=== PATIENT | female | born 1955 | race Caucasian/White ===

== ENCOUNTER 2023-06-08 19:50 | Inpatient (IN) | payer OTHER, SELFPAY ==
[2023-06-08] VITALS (8 sets, daily range): BP systolic 102–138; BP diastolic 47–81; BMI 23.7; BMI 24.6
[2023-06-08 16:09] LABS: % Basophils 0.4 % (0-2); % Eosinophils 0.2 % (0-6); % Lymphocytes 5.1 % (20.5-51.1); % Neutrophils 85.3 % (42.2-75.2); Absolute Basophils 0.1 10^3/uL (0-0.2); Absolute Eosinophils 0.1 10^3/uL (0-0.7); Absolute Immature Granulocytes 0.9 10^3/uL (0-0.05); Absolute Lymphocytes 1.5 10^3/uL (1.2-3.4); Absolute Monocytes 1.7 10^3/uL (0.1-0.6); Absolute Neutrophils 24.3 10^3/uL (1.4-6.5); Hematocrit 24.6 % (37.0-47.0); Hemoglobin 8.1 g/dL (12.0-16.0); Mean Corp Hgb Conc. 32.9 g/dL (33.0-37.0); Mean Corpuscular Hgb 29.2 pg (27.0-31.0); Mean Corpuscular Volume 88.8 fL (81.0-99.0); Nucleated Red Blood Cells % 0 %; Platelet Count 662 10^3/uL (130-400); Red Blood Cell Count 2.77 10^6/uL (4.20-5.40); Red Cell Dist. Width 15.7 % (11.5-14.5); White Blood Cell Count 28.6 10^3/uL (4.8-10.8)
[2023-06-08 16:29] LABS: ALT (SGPT) 48 U/L (0-35); AST (SGOT) 58 U/L (14-36); Alkaline Phosphatase 367 U/L (38-126); Blood Urea Nitrogen 31 mg/dl (7-17); Calcium 9.2 mg/dl (8.4-10.2); Carbon Dioxide 18 mmol/L (22-30); Chloride 99 mmol/L (98-107); Estimated Creatinine Clearance 38 ml/min; Glucose 158 mg/dl (70-99); Potassium 3.3 mmol/L (3.5-5.1); Sodium 134 mmol/L (135-145); Total Bilirubin 0.7 mg/dl (0.2-1.3); Total Protein 6.4 g/dl (6.3-8.2); eGFR 45.35
[2023-06-08 16:35] LABS: COVID-19 Antigen Negative (Negative)
[2023-06-08] MEDS: DECADRON 10 MG IV (17:34)
[2023-06-08] MEDS: DUONEB 3 ML INH (17:34)
[2023-06-08] MEDS: ZITHROMAX INFUSION 250 IV (18:28)
[2023-06-08] MEDS: ROCEPHIN 2000 MG IV (18:29)
--- NOTE | 2023-06-08 19:07 | ED.GENMED ---
History of Present Illness
General
Chief Complaint: Cough
Source: patient
Exam Limitations: none
Time Seen by Provider: 06/08/23 16:53
Nursing documentation reviewed up to this point in time: agreed with
Travel History
Have you had any contact with someone who has COVID-19?: No
Do you have any symptoms of coronavirus? Fever > 100 degrees, chills, cough, shortness of breath, sore throat, loss of taste or smell, muscle aches, or headache?: No
History of Present Illness
History of Present Illness:
67-year-old female with medical history of hypertension hyperlipidemia anxiety depression presenting to the emergency department today with concerns of cough body aches over the past week also had some right low back pain as well. Claims to have
some mild shortness of breath as well.
Review of Systems
Review of Systems
Allergies reviewed?: Yes
All Other Systems: ROS reviewed and negative except as documented in HPI and ROS
Phy Exam
Physical Exam
Physical Exam:
GENERAL: Alert , in no apparent distress
EYE: pupils equal and reactive
NECK: Supple, no significant adenopathy.
ENT: o/p clr, mmm.
CARDIAC: Regular rate and rhythm .
LUNGS: Diffuse rhonchi maximal to the right lower lobe.
ABDOMEN: Soft, without focal tenderness, no r/g, no cvat
NEUROLOGICAL: Alert and oriented, no focal neuro deficits
SKIN: Warm and dry, skin intact.
MUSCULOSKELETAL: No edema, well perfused.
PSYCH: Normal and appropriate interaction.
Course
Orders/Labs/Results
Orders:
Orders
06/08/23 15:51
COVID-19 Antigen Urgent
Source: Nasal Swab
Complete Blood Count/With Diff Urgent
Comprehensive Metabolic Panel Urgent
Influenza A+B Rapid Molecular Urgent
LUCY Source: Nasal Swab
Specimen Description:
06/08/23 17:01
EKG [Electrocardiogram (*1)] Urgent
Reason for Study: Shortness of Breath
Chest [CR Chest - 2 Views ] Urgent
Comment:
Reason For Exam: cough body ache
06/08/23 17:02
EKG- Treatment ONCE
06/08/23 17:14
CT Abd/Pel (IV only)-[facility] only Urgent
Comment:
Reason For Exam: diffuse abd pain right flank pain
Dexamethasone Sod Phosphate [Decadron] 10 mg IV NOW STA
Ipratropium/Albuterol Sulfate [Duoneb] 3 ml INH R NOW ONE
06/08/23 18:00
Azithromycin 500 mg/250 ml [Zithromax Infusion] 500 mg in 250 ml IV NOW
CefTRIAXone [Rocephin] 2,000 mg IV NOW STA
06/08/23 18:25
Sterile Water [Sterile Water For Injection] 10 ml .ROUTE .[facility]
06/08/23 19:34
Admit/Transfer Patient As Directed
Co-Sign Provider:
Level of Care: Inpatient admission
Assign to:: Telemetry
Physician / Group: brenday
Diagnosis: Concerning for necrotizing PNA +/_ evolving lung abscess
Reason for Telemetry: Other
Other Reason for Telemetry: evolving sepsis
Date to Stop Telemetry: 06/10/23
Time to Stop Telemetry: 11:00
Reason for Hospitalization: Concerning for necrotizing PNA +/_ evolving lung abscess
Expected length of stay greater than two midnights?: Yes
ELOS- Estimated Length of Stay in days: 5
I certify the patient meets the requirements for IP care: Yes
06/08/23 19:36
Code Status As Directed
Resuscitation Status: Full Code
06/08/23 19:55
Lactate Level [Lactic Acid] Urgent
Blood Culture Q30M
LUCY Source: Blood/Venous
Specimen Description:
Comment: to collecect prior to ABx
Blood Culture Q30M
LUCY Source: Blood/Venous
Specimen Description:
Comment: to collecect prior to ABx
Legionella Urinary Antigen Routine
LUCY Source: Urine
Specimen Description:
06/10/23 11:00
DC Protocol for Telemetry ONCE
Abnormal Lab Results
06/08/23
15:51
WBC 28.6 H 10^3/uL
(4.8-10.8)
RBC 2.77 L 10^6/uL
(4.20-5.40)
Hgb 8.1 L g/dL
(12.0-16.0)
Hct 24.6 L %
(37.0-47.0)
MCHC 32.9 L g/dL
(33.0-37.0)
RDW 15.7 H %
(11.5-14.5)
Plt Count 662 H 10^3/uL
(130-400)
Abs Immat Gran (auto) 0.9 H 10^3/uL
(0-0.05)
Absolute Neuts (auto) 24.3 H 10^3/uL
(1.4-6.5)
Absolute Monos (auto) 1.7 H 10^3/uL
(0.1-0.6)
Immature Gran % 3.0 H %
(0-0.5)
Neutrophils % 85.3 H %
(42.2-75.2)
Lymphocytes % 5.1 L %
(20.5-51.1)
Sodium 134 L mmol/L
(135-145)
Potassium 3.3 L mmol/L
(3.5-5.1)
Carbon Dioxide 18 L mmol/L
(22-30)
BUN 31 H mg/dl
(7-17)
Creatinine 1.3 H mg/dL
(0.6-1.0)
Glucose 158 H mg/dl
(70-99)
AST 58 H U/L
(14-36)
ALT 48 H U/L
(0-35)
Alkaline Phosphatase 367 H U/L
(38-126)
Albumin 3.0 L g/dl
(3.5-5.0)
06/08/23 15:51
06/08/23 15:51
Vital Signs
Initial and Last Documented VS:
Initial Vital Signs
Pulse Resp Pulse Ox
75 18 97
06/08/23 15:45 06/08/23 15:45 06/08/23 15:45
Last Documented Vital Signs
Temp Pulse Resp BP Pulse Ox
97.9 F 75 17 138/58 93
06/08/23 15:50 06/08/23 20:00 06/08/23 20:00 06/08/23 19:50 06/08/23 19:30
MDM/Problems Addressed
MDM/Problems Addressed:
67-year-old female presenting to the emergency department today with concerns of respiratory symptoms generalized body aches weakness over the past week or so worsening over the past few days on arrival vital signs are normal patient does have
significant adventitious lung sounds patient does have a long history of smoking was started on DuoNebs and steroids. X-ray was performed that showed a large pneumonia to the right side and additionally labs showing white count of 28.6 and
hemoglobin of 8.1 no old levels for comparison. Otherwise abnormal liver function tests slightly elevated creatinine level plan to admit for further treatment and monitoring. Return precautions given.
*Critical Care Note
Total Time (30-74mins, 75-104mins- exclusive of procedures): Not Applicable
ED Attending Note
-
Portions of this chart may have been created with voice recognition software.� Occasional wrong word or��sound alike� substitutions may have occurred due to the inherent limitations of voice recognition software.
Discharge Plan
Departure
Patient Disposition: Admit
Date of Disposition: 06/08/23
Time of Disposition: 19:07
Admit to: Med/Surg
Admit to doctor: Brenday
Presentation/result/management discussed w/ accepting MD/DO: Hospitalist
Patient with high blood pressure during this ER visit?: No
Condition: Good
Covid-19: Not Applicable
Discharge Problem:
Pneumonia
Interventions
Interventions:
*Risk Screen - Suicide Last Done: 06/08/23 15:47
*General Assessment Last Done: 06/08/23 15:47
*Neglect/Abuse Screening Last Done: 06/08/23 15:47
ED- Fall Risk Assessment Last Done: 06/08/23 15:46
*ED COVID-19 Vaccine History Last Done: 06/08/23 15:46
ED- Pulmonary Assessment Last Done: 06/08/23 15:57
--- NOTE | 2023-06-08 19:30 | HPS.HSE ---
Family Physician
-
Family Physician: Lavern Villalpando
Chief Complaint
-
cough , myalgia for 1 week.
History of Present Illness
67F poor historian Former smoker , from home [facility] from home with productive cough, colored yellow sputum, myalgia for 1 week. Denied fever and chills
Worsening chr LBP especially on R Lower back. No focal weakness
Normallu use walker but last few days just lying in bed
Afebrile at ER but relatively hypotensive
Labs noted for Nl WCC, normocytic anemia, thrombocytosis, JERMAN with high AG MA , abnormal transaminase
POX CXR for R ML PNA
CT AP concerning for necrotizing PNA +/_ evolving lung abscess
Medical History
Past Medical History
Past Medical History: Reports Other
Additional Past Medical History:
Essential HTN
HLD
Depression
GERD
HX chr LBP
Ambulatory dysfunction
B/l impaired hearing
Past Surgical History: Reports Orthopedic (Lx surgery 2021 CTS Lt hand )
Social History
Tobacco: Former Smoker
Alcohol: None
Drug: None
Family History
Family History: Not pertinent
Allergies / Home Medications
Allergies reflects when Allergies were last updated in [facility].
Home Medications with original date entered in [facility]
Allergy/Medication List:
Allergies
Allergy/AdvReac Type Severity Reaction Status Date / Time
adhesive Allergy Rash Verified 06/08/23 15:42
Home Medications
Metocuramine 5 mg PO QID 06/08/23
amlodipine 5 mg tablet (Norvasc) 5 mg PO BID 06/08/23
atorvastatin 10 mg tablet (Lipitor) 10 mg PO QPM 06/08/23
buprenorphine 8 mg-naloxone 2 mg sublingual tablet 1 tab sublingual BID 06/08/23
bupropion HCl 150 mg 24 hr tablet, extended release (Wellbutrin XL) 450 mg PO DAILY 06/08/23
losartan 50 mg tablet 50 mg PO BID 06/08/23
methylnaltrexone 150 mg tablet (Relistor) 150 mg PO TID 06/08/23
sertraline 100 mg tablet 100 mg PO DAILY 06/08/23
Review of Systems
-
Constitutional: Reports No Symptoms
EENT: Reports No Symptoms
Respiratory: Reports See HPI and Cough
Cardiac: Reports No Symptoms
Abdomen/GI: Reports No Symptoms
: Reports No Symptoms
Musculoskeletal: Reports No Symptoms
Skin: Reports No Symptoms
Neurological: Reports No Symptoms
Endocrine: Reports No Symptoms
Hematologic/Lymphatic: Reports No Symptoms
Psych: Reports No Symptoms
Physical Exam
Vital Signs
Vital Signs
Temp Pulse Resp BP Pulse Ox
97.9 F 66 20 116/48 97
06/08/23 15:50 06/08/23 18:00 06/08/23 18:00 06/08/23 17:00 06/08/23 18:00
Physical Exam
General: Well Developed, Well Nourished, No Apparent Distress, Conversant and Other (not toxic )
HEENT: NormoCephalic, Anicteric and Other
Respiratory: Other (decresed AE at Rt side ); No Wheezes or Rhonchi
Cardiac: S1/S2, Regular Rhythm and Bradycardia; No Murmur
Breast: Deferred by me
GI: Soft, Non Tender, Non Distended and Normal Bowel Sounds
Rectal: Deferred by Provider
Genito-urinary: Deferred by me
Musculoskeletal: No Edema
Skin: Warm and Dry
Neuro: AO x 3
Psych: Calm
Laboratory Results
-
06/08/23 15:51
06/08/23 15:51
Laboratory Results
Total Bilirubin 0.7 mg/dl (0.2-1.3) 06/08/23 15:51
AST 58 U/L (14-36) H 06/08/23 15:51
ALT 48 U/L (0-35) H 06/08/23 15:51
Alkaline Phosphatase 367 U/L (38-126) H 06/08/23 15:51
Data Reviewed
-
Diagnostic Radiology: Report Reviewed by me
CT Scan: Report Reviewed by me
Lab Data: Labs Reviewed by me
Impression/Plan
-
Reviewed VS: Afebrile BP 105/50 - 115/50 HR 60s RR 20 POx 97
Data- No prior data in [facility]
WCC 28s
Hgb 8.1 nl MCV
Plt 662
Na 134
K 3.3
CO2 18
Cr 1.3 BUN 31
Hi AG MA 17 due to JERMAN
AST 58 ALT 48 AKP 367 nl TB Alb 3
BCx x 2 sent prior to ABx
Pending Ur Legionella Ag
NEG Covid
NEG Flu A & B
CXR : Pneumonia in the right middle lobe.
06/08/23 CT Abd/Pel (IV only)- only
Partially imaged dense consolidation in the right middle lobe remains concerning for pneumonia.
Imaging follow-up to resolution is recommended as an underlying pulmonary mass would be difficult to exclude. Irregular areas of fluid attenuation and scattered foci of gas within the consolidation considered at least suspicious for necrotizing
pneumonia, but no discrete thick-walled abscess on this exam.
No prior admission to [facility]
ASSESSMENT & PLAN
Rt ML PNA with Irregular areas of fluid attenuation + scattered foci of gas within the consolidation
Concerning for necrotizing PNA +/_ evolving lung abscess - noted associated reactive thrombocytosis
Cannot exclude underlying Pul mass
+ wheezing with former smoking HX: No prior HX COPD
Relatively hypotensive probably incipient sepsis
- BCx x2 prior to ABx
- IV CFTZ and Azithromycin
- Urine Legionella Ag
- LR IVF
- check LA
- Consult: Pul and ID for AM
JERMAN ? - suspect 2/2 prerenal and sepsis
Hi AG MA
Relatively hypotensive
- Held Losartan
- IVF and tred Cr in AM
Normocytic anemia
- check ferritin
Transaminitis DDX; suspect AILI due to hypotension in setting of incipient sepsis
- Held Atorvastatin
- Trend LFTs
Essential HTN
- Held Amlodipine and Losartan
- IVF and observe BP
HLD
- held atorvastatin due to abn LFTs
Depression
- Stable
- cont OP Bupropion and sertraline
Chr Suboxone inn place of prior Percocet depended LBP
- cont. Suboxone
- PT
DVT Px: SQH
Code: Full
IP TLM
[2023-06-08 20:23] LABS: Lactic Acid 0.8 mmol/L (0.7-2.0)
[2023-06-08] MEDS: ROBITUSSIN 200 MG PO (22:32)
[2023-06-08] MEDS: ULTRAM 25 MG PO (22:33)
--- NOTE | 2023-06-08 22:42 | EDRN ---
Prior to pt leaving to go to floor, pt asked for pain medication and a cough suppressant. Hospitalist made aware. Orders given for Tramadol and Robitussin. Meds given to pt. See MAR. Pt transferred to Room 420 by PCT on stretcher. Will
continue to monitor.
[2023-06-09] VITALS (8 sets, daily range): BP systolic 120–139; BP diastolic 52–73
[2023-06-09] MEDS: WELLBUTRIN XL (24 hour extended release) 450 MG PO ×2 (00:41→08:50)
[2023-06-09] MEDS: SUBUTEX 8 MG SL ×3 (00:46→20:53)
[2023-06-09] MEDS: ZOLOFT 100 MG PO ×2 (00:49→08:50)
[2023-06-09] MEDS: HEPARIN 5000 UNITS SC ×2 (00:50→08:48)
[2023-06-09] MEDS: LR 1000 IV ×2 (00:50→12:06)
[2023-06-09] MEDS: MUCINEX 600 MG PO ×3 (00:50→20:53)
--- NOTE | 2023-06-09 07:55 | W.PN.HOSP.TC ---
Today's Communication/Plan
-
see bold
Assessment / Plan
Assessment / Plan
HPI: 67F poor historian Former smoker , from home [facility] from home with productive cough, colored yellow sputum, myalgia for 1 week. Denied fever and chills
Worsening chr LBP especially on R Lower back. No focal weakness
Normally use walker but last few days just lying in bed
Assessment/plan:
#Community-acquired pneumonia
Patient satting 97% on room air
Appreciate ID input, continue Rocephin and azithromycin
COVID-negative, influenza negative, urine Legionella antigen negative, strep antigen pending
Check chest CT in the a.m., trend fever and white count
Cancel pulmonology consult
#Acute kidney injury
Secondary to sepsis versus dehydration
Resolved
#Non-anion gap metabolic acidosis
Lactic acid 0.8
Start sodium bicarb
#Severe constipation
Has not had a bowel movement for 2 weeks
Start aggressive laxatives, hold for diarrhea
#Hypokalemia
Repleted and resolved, check a.m. potassium and magnesium
#Hyponatremia
Check urine studies, TSH, free T4
Fluid restrict, trend sodium
#Normocytic anemia
Check iron studies
#Elevated LFTs
Monitor
#Depression
Continue bupropion and sertraline
#Chronic back pain dependent on opioids
Continue Suboxone, add Tylenol, add lidocaine patch
DVT prophylaxis�subcu Lovenox
Full code
Physical Exam
General: No acute distress
HEENT: Normocephalic, Atraumatic, EOMI, MMM
Respiratory: Left basilar crackles
Cardiac: Normal S1/S2, Regular Rate and Rhythm
GI: Soft, Nontender, Nondistended, Normal Bowel Sounds
Extremities: No Clubbing, Cyanosis, or Edema
Neuro: Nonfocal/Grossly Intact
Psych: Calm, Cooperative
Derm: No Visible lesions
Anticipated Discharge: > 48 hours
Subjective/Interval History
-
Date of Service: June 09, 2023
Patient complains of pain. She also is constipated. She reports a cough, nonproductive. She continues to be short of breath. No fever, no vomiting.
Objective Data
-
Labs:
Laboratory Results
06/09/23
07:52
WBC Pending
Hgb Pending
Hct Pending
Plt Count Pending
Sodium Pending
Potassium Pending
Chloride Pending
Carbon Dioxide Pending
BUN Pending
Creatinine Pending
Glucose Pending
Calcium Pending
Total Bilirubin Pending
AST Pending
ALT Pending
Alkaline Phosphatase Pending
Vital Signs:
Vital Signs
Temp Pulse Resp BP Pulse Ox
98.2 F 70 16 139/64 95
06/09/23 04:11 06/09/23 04:11 06/09/23 04:11 06/09/23 04:11 06/09/23 04:11
I&O
06/08/23 06/09/23 06/10/23
06:59 06:59 06:59
Intake Total 480 / 480
Output Total 0 / 0
Balance 480 / 480
[2023-06-09 08:49] LABS: % Basophils 0.4 % (0-2); % Immature Granulocytes 2.2 % (0-0.5); % Lymphocytes 4.7 % (20.5-51.1); % Monocytes 1.5 % (1.7-9.3); % Neutrophils 91.2 % (42.2-75.2); Absolute Basophils 0.1 10^3/uL (0-0.2); Absolute Immature Granulocytes 0.5 10^3/uL (0-0.05); Absolute Monocytes 0.3 10^3/uL (0.1-0.6); Absolute Neutrophils 18.8 10^3/uL (1.4-6.5); Hematocrit 23.6 % (37.0-47.0); Mean Corp Hgb Conc. 33.9 g/dL (33.0-37.0); Mean Corpuscular Hgb 29.4 pg (27.0-31.0); Mean Corpuscular Volume 86.8 fL (81.0-99.0); Mean Platelet Volume 10.2 fL (7.4-10.4); Nucleated Red Blood Cells % 0 %; Platelet Count 648 10^3/uL (130-400); Red Blood Cell Count 2.72 10^6/uL (4.20-5.40); Red Cell Dist. Width 15.9 % (11.5-14.5); White Blood Cell Count 20.6 10^3/uL (4.8-10.8)
[2023-06-09] MEDS: ZITHROMAX 500 MG PO (08:50)
--- NOTE | 2023-06-09 09:05 | PTCARENOTE ---
Pt admitted to the unit from ED. Pt ambulated with nursing staff to bed. AAXO3. Pt uses rolling walker at baseline. Pt reports 'lower right pain when I cough.' Pt oriented to room with call nugent in reach.
This RN assisted in the ambulation of pt to bathroom with rolling walker. Pt reported 'lightheadedness with ambulation to bed.' Pt reports 'lightheadedness resolved' once in bed. Pt denies SOB, chest pain, and difficulty breathing. Bedside commode
placed in room. Plan of care ongoing.
[2023-06-09 09:14] LABS: ALT (SGPT) 46 U/L (0-35); AST (SGOT) 57 U/L (14-36); Albumin 2.6 g/dl (3.5-5.0); Alkaline Phosphatase 306 U/L (38-126); Blood Urea Nitrogen 31 mg/dl (7-17); Calcium 8.8 mg/dl (8.4-10.2); Carbon Dioxide 16 mmol/L (22-30); Chloride 104 mmol/L (98-107); Estimated Creatinine Clearance 44 ml/min; Glucose 277 mg/dl (70-99); Potassium 4.2 mmol/L (3.5-5.1); Sodium 130 mmol/L (135-145); Total Bilirubin 0.3 mg/dl (0.2-1.3); Total Protein 5.7 g/dl (6.3-8.2); eGFR > 60.00
[2023-06-09 10:20] LABS: Folate 6.8 ng/ml (2.76-20); Vitamin B12 > 1000 pg/ml (239-931)
[2023-06-09] MEDS: CITROMA 300 ML PO (11:22)
[2023-06-09] MEDS: SENOKOT-S 2 TABLET PO ×2 (11:23→20:53)
--- NOTE | 2023-06-09 11:33 | CON.ID ---
Consultation
-
Date/Time Consultation Requested: 06/08/2023 2212
Date/Time Consultation Performed: 06/09/2023 1129
Requesting Provider: Dr. Boothe
Performing Provider: Dr. Ferris
Reason for Consultation: Pneumonia; leukocytosis
Chief Complaint / Past History
History of Present Illness
Analia Eric is a 67-year-old female with a significant past medical history HTN dyslipidemia being evaluated at the request of Dr. Boothe in regards to leukocytosis and pneumonia. History is obtained from chart review, along with patient interview.
The patient presented to the ER on 06/07 secondary to cough with associated myalgias and arthralgias over the past week. She also reported some right low back discomfort and mild shortness of breath. Workup in the ER revealed a significant
leukocytosis and mild renal insufficiency. Imaging revealed a right middle lobe pneumonia. The patient has been started on empiric antibiotics (ceftriaxone/Azithromycin) and Infectious Diseases is asked to comment on further antimicrobial
management.
Additional history indicates that she had been producing yellow-colored sputum.
Past History
Additional Past Medical History:
HTN
Dyslipidemia
Depression
GERD
Chronic low back pain
Ambulatory dysfunction
Hearing impairment
Additional Past Surgical History:
Lumbar surgery
Allergy History:
adhesive Allergy (Verified 06/08/23 15:42)
Rash
Medications Reviewed: Yes
Current Antibiotics:
Ceftriaxone
Azithromycin
Social History
Tobacco: Former Smoker
Alcohol: None
Drug: None
Living: With Family
Employment: Retired
Family History
Family History: Not Pertinent
Review of Systems
Vital Signs
Temp Pulse Resp BP Pulse Ox
97.9 F 66 16 122/57 99
06/09/23 07:37 06/09/23 09:27 06/09/23 09:27 06/09/23 07:37 06/09/23 09:27
Physical Exam
Physical Exam
Constitutional: No Acute Distress, Comfortable, Chronically Ill and Non-toxic
Eyes: Pupils Equal, Pupils Round, No Conjunctival Hemorrhage and Sclera Anicteric
Oral: No Thrush and No Ulcers
Cardiovascular: S1/S2; Negative S3/S4
Pulmonary: Rhonchi (Few; scattered), Coarse and Non Labored; Negative Wheezes
Gastrointestinal: Soft, Non Tender, Non Distended and Normal Bowel Sounds
Extremities: Negative Erythema
Skin: Warm and Dry; Negative Rash or Jaundice
Neurological: Awake and Alert
.
Lab / Diagnostic Study Results
06/09/23 07:52
06/09/23 07:52
Abs Immat Gran (auto) 0.5 10^3/uL (0-0.05) H 06/09/23 07:52
Absolute Neuts (auto) 18.8 10^3/uL (1.4-6.5) H 06/09/23 07:52
Absolute Lymphs (auto) 1.0 10^3/uL (1.2-3.4) L 06/09/23 07:52
Absolute Monos (auto) 0.3 10^3/uL (0.1-0.6) 06/09/23 07:52
Absolute Basos (auto) 0.1 10^3/uL (0-0.2) 06/09/23 07:52
Immature Gran % 2.2 % (0-0.5) H 06/09/23 07:52
Neutrophils % 91.2 % (42.2-75.2) H 06/09/23 07:52
Lymphocytes % 4.7 % (20.5-51.1) L 06/09/23 07:52
Monocytes % 1.5 % (1.7-9.3) L 06/09/23 07:52
Eosinophils % 0.0 % (0-6) 06/09/23 07:52
Basophils % 0.4 % (0-2) 06/09/23 07:52
Lactic Acid 0.8 mmol/L (0.7-2.0) 06/08/23 19:55
Microbiology Results
Micro:
06/08/23 19:55 Legionella Urinary Antigen - Final
Urine Negative for Legionella pneumophila Serogroup 1 antigen.
A negative result does not rule out the possiblity of
Legionella infection due to other serogroups or species of
Legionella. Clinical correlation is recommended.
06/08/23 19:55 Blood Culture - Pending
Blood/Venous
06/08/23 19:55 Blood Culture - Pending
Blood/Venous
06/08/23 15:51 Influenza Types A & B (FRANK) - Final
Nasal Swab Negative for Influenza A & B, NAAT
Negative results must be combined with clinical observations
and patient history.
Nucleic Acid Amplification test (NAAT)performed on the
[employer] platform.
Imaging:
06/08/2023 CXR (2 view): Right middle lobe consolidative airspace opacity compatible with pneumonia. No pleural effusion or pneumothorax.
06/08/2023 CT abdomen/pelvis: Liver, gallbladder, bile ducts and spleen are unremarkable. Bilateral adrenal glands are unremarkable. Pancreas is severely atrophic. Partially imaged dense consolidation in the right middle lobe remains concerning
for pneumonia. Please see full dictation for additional detail.
Assessment / Plan
Right middle lobe pneumonia (CAP)
Leukocytosis
JERMAN; improved
Mild transaminitis
HTN
Dyslipidemia
Depression
GERD
Chronic low back pain
Ambulatory dysfunction
Hearing impairment
Recommendations:
Continue with current antibiotic therapy (ceftriaxone/Azithromycin.
Check sputum culture.
Monitor white count and temperature curve.
Check streptococcal urinary antigen.
[2023-06-09] MEDS: MIRALAX 17 GRAMS PO ×2 (12:06→20:53)
--- NOTE | 2023-06-09 12:32 | CM ---
manager harbor reviewed patient's chart and patient reports that she recently moved in with her 'friend', per patient it was extremely rushed, patient reports that she is independent with adl's and ambulation, patient has a walker that is packed with
the rest of her belongings and she is not sure where it is, Patient lives with friend in a 2 story home, patient has a prescription plan and uses [facility].
PCP: Lavern Villalpando
Plan; Home with friend when stable.
--- NOTE | 2023-06-09 13:00 | W.PN.UPDATE ---
Update Note
Progress Note Update
Of note, pulmonary consultation was canceled by Dr. Bowden on 06/09/2023. Please reconsult if there are any additional questions/concerns, or if patient's respiratory status deteriorates.
[2023-06-09] MEDS: TYLENOL 1000 MG PO ×2 (13:47→20:53)
[2023-06-09] MEDS: LIDOCAINE 4% PATCH 2 PATCH TOPICAL (13:47)
[2023-06-09] MEDS: FLUSH (NSS) 1 FLUSH IV ×2 (17:51→18:19)
[2023-06-09] MEDS: DUPHALAC/CHRONULAC 20 GRAMS PO (17:51)
[2023-06-09] MEDS: LOVENOX 40 MG SC (17:54)
[2023-06-09] MEDS: ROCEPHIN 1000 MG IV (18:21)
[2023-06-09] MEDS: STERILE WATER FOR INJECTION 10 ML IV (18:22)
[2023-06-10 03:05] VITALS: BP 127/46
[2023-06-10 07:00] VITALS: BP 129/63
[2023-06-10 07:49] LABS: % Basophils 0.2 % (0-2); % Eosinophils 0.2 % (0-6); % Immature Granulocytes 1.7 % (0-0.5); % Lymphocytes 16.8 % (20.5-51.1); % Neutrophils 76.1 % (42.2-75.2); Absolute Immature Granulocytes 0.3 10^3/uL (0-0.05); Absolute Lymphocytes 3.1 10^3/uL (1.2-3.4); Absolute Monocytes 0.9 10^3/uL (0.1-0.6); Absolute Neutrophils 13.8 10^3/uL (1.4-6.5); Hematocrit 24.9 % (37.0-47.0); Hemoglobin 7.9 g/dL (12.0-16.0); Mean Corp Hgb Conc. 31.7 g/dL (33.0-37.0); Mean Corpuscular Hgb 28.6 pg (27.0-31.0); Mean Corpuscular Volume 90.2 fL (81.0-99.0); Nucleated Red Blood Cells % 0 %; Platelet Count 684 10^3/uL (130-400); Red Blood Cell Count 2.76 10^6/uL (4.20-5.40); Red Cell Dist. Width 16.1 % (11.5-14.5); White Blood Cell Count 18.2 10^3/uL (4.8-10.8)
[2023-06-10] MEDS: LIDOCAINE 4% PATCH 2 PATCH TOPICAL (08:00)
[2023-06-10 08:23] LABS: ALT (SGPT) 139 U/L (0-35); AST (SGOT) 202 U/L (14-36); Albumin 2.7 g/dl (3.5-5.0); Alkaline Phosphatase 266 U/L (38-126); Blood Urea Nitrogen 42 mg/dl (7-17); Calcium 9.3 mg/dl (8.4-10.2); Carbon Dioxide 19 mmol/L (22-30); Chloride 103 mmol/L (98-107); Estimated Creatinine Clearance 40 ml/min; Glucose 136 mg/dl (70-99); Iron 116 ug/dl (37-170); Potassium 4.1 mmol/L (3.5-5.1); Sodium 137 mmol/L (135-145); Total Bilirubin 0.4 mg/dl (0.2-1.3); Total Protein 5.9 g/dl (6.3-8.2); eGFR 55.42
[2023-06-10 08:36] LABS: Percent Saturation 58 % (20-50); Total Iron Binding Capacity 197 ug/dl (265-497)
[2023-06-10] MEDS: ZOFRAN 4 MG IV (09:20)
[2023-06-10] MEDS: LR IV (09:20)
[2023-06-10] MEDS: ZITHROMAX 500 MG PO (10:27)
[2023-06-10] MEDS: LR 1000 IV (10:29)
[2023-06-10] MEDS: WELLBUTRIN XL (24 hour extended release) 450 MG PO (10:30)
[2023-06-10] MEDS: SUBUTEX 8 MG SL ×2 (10:30→20:35)
[2023-06-10] MEDS: ZOLOFT 100 MG PO (10:30)
[2023-06-10] MEDS: SENOKOT-S 2 TABLET PO ×2 (10:30→20:34)
[2023-06-10] MEDS: MUCINEX 600 MG PO ×2 (10:30→20:35)
[2023-06-10] MEDS: TYLENOL 1000 MG PO ×3 (10:30→20:54)
[2023-06-10] MEDS: MIRALAX 17 GRAMS PO ×2 (10:31→20:35)
[2023-06-10 10:57] VITALS: BP 143/69
--- NOTE | 2023-06-10 11:52 | PTCARENOTE ---
Patient with one episode of emesis, says it just cam joe her all of the sudden and felt nauseous afterwards. Patient reports that this isn't abnormal for her, and that she typically vomits a few times a week at home for which she takes medication.
Provider aware, stat zofran given IV per MAY. Patient able to tolerate PO medications after administration.
--- NOTE | 2023-06-10 12:10 | W.PN.HOSP.TC ---
Today's Communication/Plan
-
Continue IV abx
Enema
Assessment / Plan
Assessment / Plan
HPI: 67F poor historian Former smoker , from home [facility] from home with productive cough, colored yellow sputum, myalgia for 1 week. Denied fever and chills
Worsening chr LBP especially on R Lower back. No focal weakness
Normally use walker but last few days just lying in bed
Assessment/plan:
#Community-acquired pneumonia
Patient satting 97% on room air
Appreciate ID input, continue Rocephin and azithromycin D3
COVID-negative, influenza negative, urine Legionella/strep antigen negative
Check chest CT, leukocytosis improving, trend fever and white count
#Acute kidney injury
Secondary to sepsis versus dehydration
Resolved
#Non-anion gap metabolic acidosis
Lactic acid 0.8
Continue sodium bicarb
#Severe constipation
Has not had a bowel movement for 2 weeks
Start aggressive laxatives, hold for diarrhea
Enema today, add lactulose
#Hypokalemia
Repleted and resolved, check a.m. potassium and magnesium
#Hyponatremia
Sodium improved today at 137, was 130
Fluid restrict, trend sodium
# Anemia of chronic disease
Iron studies reviewed, patient has anemia of chronic disease
Trend hemoglobin
#Elevated LFTs
Monitor
#Depression
Continue bupropion and sertraline
#Chronic back pain dependent on opioids
Continue Suboxone, added Tylenol, added lidocaine patch
DVT prophylaxis�subcu Lovenox
Full code
Total time spent to see the patient on the floor, examine the patient, review data and lab results, discuss treatment plan with patient, nursing staff around 51 minutes.
Physical Exam
General: Appears chronically ill, no acute distress
HEENT: Normocephalic, Atraumatic, EOMI, MMM
Respiratory: Left basilar crackles
Cardiac: Normal S1/S2, Regular Rate and Rhythm
GI: Soft, Nontender, distended abdomen, Normal Bowel Sounds
Extremities: No Clubbing, Cyanosis, or Edema
Neuro: Nonfocal/Grossly Intact
Psych: Calm, Cooperative
Anticipated Discharge: > 48 hours
Subjective/Interval History
-
Date of Service: June 10, 2023
Patient continues to have a dry cough. She had a tiny hard bowel movement. No fever, no vomiting. No shortness of breath. Continues to have chronic back pain.
Objective Data
-
Labs:
Laboratory Results
06/10/23
07:15
WBC 18.2 H
Hgb 7.9 L
Hct 24.9 L
Plt Count 684 H
Sodium 137
Potassium 4.1
Chloride 103
Carbon Dioxide 19 L
BUN 42 H
Creatinine 1.1 H
Glucose 136 H
Calcium 9.3
Total Bilirubin 0.4
AST 202 H
ALT 139 H
Alkaline Phosphatase 266 H
Vital Signs:
Vital Signs
Temp Pulse Resp BP Pulse Ox
98.2 F 97 16 143/69 94
06/10/23 10:57 06/10/23 10:57 06/10/23 10:57 06/10/23 10:57 06/10/23 10:57
I&O
06/09/23 06/10/23 06/11/23
06:59 06:59 06:59
Intake Total 480 / 480 500 / 500
Output Total 0 / 0
Balance 480 / 480 500 / 500
--- NOTE | 2023-06-10 14:02 | W.PN.ID1 ---
Date of Service
Date of Service: June 10, 2023
Today's Communication
Continue antibiotics.
Assessment / Plan
Right middle lobe pneumonia (CAP)
Leukocytosis
JERMAN; improved
Mild transaminitis
HTN
Dyslipidemia
Depression
GERD
Chronic low back pain
Ambulatory dysfunction
Hearing impairment
Recommendations:
Continue with current antibiotic therapy (ceftriaxone/Azithromycin)
Await sputum culture (no sample submitted as of yet)
Monitor white count and temperature curve.
����������������������������������������������������������
Chief Complaint
-: Pneumonia
Subjective / Review of Systems
Patient remains afebrile.
Vital Signs / Physical Exam
Vital Signs
Vital Signs
Temp Pulse Resp BP Pulse Ox
98.2 F 97 16 143/69 94
06/10/23 10:57 06/10/23 10:57 06/10/23 10:57 06/10/23 10:57 06/10/23 10:57
Physical Exam
Constitutional: Chronically Ill and Non-toxic
Pulmonary: Rhonchi (Scattered), Coarse and Non Labored
Gastrointestinal: Soft and Non Distended
Neurological: Awake and Alert
Psychological: Calm
Objective Data
Lab Data
Lab Results
06/10/23 07:15
06/10/23 07:15
Estimated Creat Clear 40 ml/min 06/10/23 07:15
Lactic Acid 0.8 mmol/L (0.7-2.0) 06/08/23 19:55
Total Bilirubin 0.4 mg/dl (0.2-1.3) 06/10/23 07:15
AST 202 U/L (14-36) H 06/10/23 07:15
ALT 139 U/L (0-35) H 06/10/23 07:15
Alkaline Phosphatase 266 U/L (38-126) H 06/10/23 07:15
Most recent labs reviewed.
Micro Results:
06/09/23 11:50 Streptococcus pneumoniae Antigen (M - Final
Urine Negative for Streptococcus pneumoniae antigen.
A negative result does not exclude infection with
Streptococcus pneumoniae. Clinical correlation is
recommended.
06/08/23 19:55 Blood Culture - Preliminary
Blood/Venous No Growth in 24 hours- Final report to follow
06/08/23 19:55 Blood Culture - Preliminary
Blood/Venous No Growth in 24 hours- Final report to follow
06/08/23 19:55 Legionella Urinary Antigen - Final
Urine Negative for Legionella pneumophila Serogroup 1 antigen.
A negative result does not rule out the possiblity of
Legionella infection due to other serogroups or species of
Legionella. Clinical correlation is recommended.
06/08/23 15:51 Influenza Types A & B (FRANK) - Final
Nasal Swab Negative for Influenza A & B, NAAT
Negative results must be combined with clinical observations
and patient history.
Nucleic Acid Amplification test (NAAT)performed on the
[employer] platform.
Imaging:
06/08/2023 CXR (2 view): Right middle lobe consolidative airspace opacity compatible with pneumonia. No pleural effusion or pneumothorax.
06/08/2023 CT abdomen/pelvis: Liver, gallbladder, bile ducts and spleen are unremarkable. Bilateral adrenal glands are unremarkable. Pancreas is severely atrophic. Partially imaged dense consolidation in the right middle lobe remains concerning
for pneumonia. Please see full dictation for additional detail.
[2023-06-10 14:17] LABS: Glycohemoglobin (HgbA1c) 7.9 % (4.0-5.6)
[2023-06-10] MEDS: SODIUM BICARBONATE 1075 MEQ IV (14:36)
[2023-06-10] MEDS: PHENERGAN 25 MG PO (14:44)
[2023-06-10 15:19] VITALS: BP 126/50
--- NOTE | 2023-06-10 16:02 | CM ---
Patient seen bedside.
PT recommending skilled rehab.
Options reviewed with patient.
Referrals placed.
Plan: skilled rehab when stable.
[2023-06-10] MEDS: ROCEPHIN 1000 MG IV (17:15)
[2023-06-10] MEDS: DUPHALAC/CHRONULAC 20 GRAMS PO (17:16)
[2023-06-10] MEDS: FLUSH (NSS) 1 FLUSH IV (17:16)
[2023-06-10] MEDS: LOVENOX 40 MG SC (17:16)
[2023-06-10] MEDS: STERILE WATER FOR INJECTION 10 ML IV (17:16)
[2023-06-10 19:32] VITALS: BP 160/64
[2023-06-10 23:26] VITALS: BP 148/63
[2023-06-11 02:53] VITALS: BP 149/55
[2023-06-11 05:56] LABS: Hepatitis C Antibody Negative (Negative)
[2023-06-11 06:15] VITALS: BMI 25.5
--- NOTE | 2023-06-11 06:53 | W.PN.HOSP.TC ---
Today's Communication/Plan
-
cont abx
pain control
bowel regimen
monitor H&H
Assessment / Plan
Assessment / Plan
HPI: 67F poor historian Former smoker , from home [facility] from home with productive cough, colored yellow sputum, myalgia for 1 week. Denied fever and chills
Worsening chr LBP especially on R Lower back. No focal weakness
Normally use walker but last few days just lying in bed
Assessment/plan:
#Community-acquired pneumonia
stable respiratory status on room air
Appreciate ID input, continue Rocephin and azithromycin D4
COVID-negative, influenza negative, urine Legionella/strep antigen negative
CT chest appreciated PNA, limited evaluation w/o contrast, follow up imaging in a few weeks recommended
leukocytosis improving, afebrile
#Acute kidney injury
Secondary to sepsis versus dehydration
Resolved
#Non-anion gap metabolic acidosis
Lactic acid 0.8
acidosis resolved, bicarb supplementation appreciated
#Severe constipation
reportedly has not had a bowel movement for 2 weeks
cont aggressive bowel regimen
constipation appears resolved at this time
#Hypokalemia
repleted
resolved
#Hyponatremia
cont Fluid restriction
Na stable 130s
# Anemia of chronic disease
Iron studies reviewed, patient has anemia of chronic disease
Trend hemoglobin
#Elevated LFTs
Monitor
#Depression
Continue bupropion and sertraline
#Chronic back pain dependent on opioids
Continue Suboxone, cont Tylenol lidocaine patch
prn Ibuprofen
DVT prophylaxis�subcu Lovenox
GI ppx Protonix
Full code
PT appreciated SNF rehab
Total time spent to see the patient on the floor, examine the patient, review data and lab results, discuss treatment plan with patient, nursing staff around 53 minutes.
Physical Exam
General: Appears chronically ill, no acute distress
HEENT: Normocephalic, Atraumatic, EOMI, MMM
Respiratory: Left basilar crackles
Cardiac: Normal S1/S2, Regular Rate and Rhythm
GI: Soft, Nontender, distended abdomen, Normal Bowel Sounds
Extremities: No Clubbing, Cyanosis, or Edema
Neuro: Nonfocal/Grossly Intact
Psych: Calm, Cooperative
Anticipated Discharge: 24 - 48 hours
Subjective/Interval History
-
Date of Service: June 11, 2023
Seen and examined at bedside in no acute distress sitting up comfortably in chair. Denies constipation. Reports back pain.
Objective Data
-
Labs:
Laboratory Results
06/11/23
06:00
WBC Pending
Hgb Pending
Hct Pending
Plt Count Pending
Sodium Pending
Potassium Pending
Chloride Pending
Carbon Dioxide Pending
BUN Pending
Creatinine Pending
Glucose Pending
Calcium Pending
Vital Signs:
Vital Signs
Temp Pulse Resp BP Pulse Ox
98.2 F 65 18 149/55 94
06/11/23 02:53 06/11/23 02:53 06/11/23 02:53 06/11/23 02:53 06/11/23 02:53
I&O
06/09/23 06/10/23 06/11/23
06:59 06:59 06:59
Intake Total 480 / 480 500 / 500 1640 / 1640
Output Total 0 / 0
Balance 480 / 480 500 / 500 1640 / 1640
[2023-06-11 08:35] VITALS: BP 168/68
[2023-06-11 08:44] LABS: Hematocrit 23.8 % (37.0-47.0); Hemoglobin 7.7 g/dL (12.0-16.0); Mean Corp Hgb Conc. 32.4 g/dL (33.0-37.0); Mean Corpuscular Hgb 29.2 pg (27.0-31.0); Mean Corpuscular Volume 90.2 fL (81.0-99.0); Mean Platelet Volume 10.1 fL (7.4-10.4); Platelet Count 656 10^3/uL (130-400); Red Blood Cell Count 2.64 10^6/uL (4.20-5.40); Red Cell Dist. Width 15.9 % (11.5-14.5); White Blood Cell Count 13.3 10^3/uL (4.8-10.8)
[2023-06-11] MEDS: MUCINEX 600 MG PO ×2 (09:01→19:24)
[2023-06-11] MEDS: ZOLOFT 100 MG PO (09:01)
[2023-06-11] MEDS: ZITHROMAX 500 MG PO (09:01)
[2023-06-11] MEDS: WELLBUTRIN XL (24 hour extended release) 450 MG PO (09:01)
[2023-06-11] MEDS: TYLENOL 1000 MG PO ×3 (09:01→21:12)
[2023-06-11] MEDS: SUBUTEX 8 MG SL ×2 (09:01→19:24)
[2023-06-11] MEDS: MIRALAX PO ×2 (09:02→19:24)
[2023-06-11] MEDS: SENOKOT-S PO (09:02)
[2023-06-11] MEDS: LIDOCAINE 4% PATCH 2 PATCH TOPICAL (09:02)
[2023-06-11 09:14] LABS: Blood Urea Nitrogen 33 mg/dl (7-17); Calcium 8.5 mg/dl (8.4-10.2); Carbon Dioxide 22 mmol/L (22-30); Chloride 105 mmol/L (98-107); Estimated Creatinine Clearance 44 ml/min; Glucose 123 mg/dl (70-99); Potassium 4.2 mmol/L (3.5-5.1); Sodium 133 mmol/L (135-145); eGFR > 60.00
[2023-06-11] MEDS: PHENERGAN 25 MG PO (09:39)
[2023-06-11 11:46] VITALS: BP 134/64
[2023-06-11 12:35] VITALS: BP 136/63; BP 147/52; PULSE 65
[2023-06-11 13:56] LABS: Cortisol, Random 10.3 ug/dl; TSH Reflex To Free T4 2.11 uIU/ml (0.47-4.68)
[2023-06-11 14:03] LABS: Transferrin 148 mg/dL (200-360)
[2023-06-11] MEDS: PROTONIX 40 MG PO (14:12)
[2023-06-11] MEDS: MOTRIN 400 MG PO (14:12)
--- NOTE | 2023-06-11 15:04 | W.PN.ID1 ---
Date of Service
Date of Service: June 11, 2023
Today's Communication
Continue antibiotics.
Assessment / Plan
Right middle lobe pneumonia (CAP)
Leukocytosis
JERMAN; improved
Mild transaminitis
HTN
Dyslipidemia
Depression
GERD
Chronic low back pain
Ambulatory dysfunction
Hearing impairment
Recommendations:
Continue with ceftriaxone (d#4) / Azithromycin (d#4).
May be able to transition to oral regimen in the next 24 hours.
Monitor white count and temperature curve.
����������������������������������������������������������
Chief Complaint
-: Pneumonia
Subjective / Review of Systems
Patient seen and examined. Reports some ongoing cough.
Review of Systems: No Fever and No Chills
Vital Signs / Physical Exam
Vital Signs
Vital Signs
Temp Pulse Resp BP Pulse Ox
98.6 F 67 17 134/64 91
06/11/23 11:46 06/11/23 11:46 06/11/23 11:46 06/11/23 11:46 06/11/23 11:46
Physical Exam
Constitutional: Comfortable, Chronically Ill and Non-toxic
Eyes: Sclera Anicteric
Cardiovascular: S1/S2; Negative S3/S4
Pulmonary: Rhonchi (Few; scattered), Coarse and Non Labored
Gastrointestinal: Soft, Normal Bowel Sounds, No Rebound and No Guarding
Neurological: Awake and Alert
Psychological: Calm
Objective Data
Lab Data
Lab Results
06/11/23 07:15
06/11/23 07:15
Estimated Creat Clear 44 ml/min 06/11/23 07:15
Lactic Acid 0.8 mmol/L (0.7-2.0) 06/08/23 19:55
Total Bilirubin 0.4 mg/dl (0.2-1.3) 06/10/23 07:15
AST 202 U/L (14-36) H 06/10/23 07:15
ALT 139 U/L (0-35) H 06/10/23 07:15
Alkaline Phosphatase 266 U/L (38-126) H 06/10/23 07:15
Most recent labs reviewed.
Micro Results:
06/08/23 19:55 Blood Culture - Preliminary
Blood/Venous No Growth in 48 hours- Final report to follow
06/08/23 19:55 Blood Culture - Preliminary
Blood/Venous No Growth in 48 hours- Final report to follow
06/09/23 11:50 Streptococcus pneumoniae Antigen (M - Final
Urine Negative for Streptococcus pneumoniae antigen.
A negative result does not exclude infection with
Streptococcus pneumoniae. Clinical correlation is
recommended.
06/08/23 19:55 Legionella Urinary Antigen - Final
Urine Negative for Legionella pneumophila Serogroup 1 antigen.
A negative result does not rule out the possiblity of
Legionella infection due to other serogroups or species of
Legionella. Clinical correlation is recommended.
06/08/23 15:51 Influenza Types A & B (FRANK) - Final
Nasal Swab Negative for Influenza A & B, NAAT
Negative results must be combined with clinical observations
and patient history.
Nucleic Acid Amplification test (NAAT)performed on the
[employer] platform.
Imaging:
06/08/2023 CXR (2 view): Right middle lobe consolidative airspace opacity compatible with pneumonia. No pleural effusion or pneumothorax.
06/08/2023 CT abdomen/pelvis: Liver, gallbladder, bile ducts and spleen are unremarkable. Bilateral adrenal glands are unremarkable. Pancreas is severely atrophic. Partially imaged dense consolidation in the right middle lobe remains concerning
for pneumonia. Please see full dictation for additional detail.
[2023-06-11 15:07] VITALS: BP 161/68
[2023-06-11] MEDS: DUPHALAC/CHRONULAC 20 GRAMS PO (17:58)
[2023-06-11] MEDS: ROCEPHIN 1000 MG IV (17:58)
[2023-06-11] MEDS: STERILE WATER FOR INJECTION 10 ML IV (17:58)
[2023-06-11] MEDS: FLUSH (NSS) 1 FLUSH IV (17:59)
[2023-06-11] MEDS: LOVENOX 40 MG SC (18:00)
[2023-06-11] MEDS: SENOKOT-S 2 TABLET PO (19:24)
[2023-06-11 22:11] VITALS: BP 163/68
[2023-06-12] MEDS: MOTRIN 400 MG PO ×2 (04:02→11:10)
[2023-06-12 07:30] VITALS: BP 163/59
[2023-06-12 08:13] LABS: Hematocrit 23.7 % (37.0-47.0); Hemoglobin 7.7 g/dL (12.0-16.0); Mean Corp Hgb Conc. 32.5 g/dL (33.0-37.0); Mean Corpuscular Hgb 29.3 pg (27.0-31.0); Mean Corpuscular Volume 90.1 fL (81.0-99.0); Platelet Count 632 10^3/uL (130-400); Red Blood Cell Count 2.63 10^6/uL (4.20-5.40); Red Cell Dist. Width 15.6 % (11.5-14.5); White Blood Cell Count 12.5 10^3/uL (4.8-10.8)
--- NOTE | 2023-06-12 08:35 | W.PN.HOSP.TC ---
Today's Communication/Plan
-
cont abx
urinalysis reflex culture
resume amlodipine
cont bowel regimen
Monitor H&H
Assessment / Plan
Assessment / Plan
HPI: 67F poor historian Former smoker , from home [facility] from home with productive cough, colored yellow sputum, myalgia for 1 week. Denied fever and chills
Worsening chr LBP especially on R Lower back. No focal weakness
Normally use walker but last few days just lying in bed
Assessment/plan:
#Community-acquired pneumonia
stable respiratory status on room air
Appreciate ID input, continue Rocephin D5, 5 days azithromycin completed
COVID-negative, influenza negative, urine Legionella/strep antigen negative
CT chest appreciated PNA, limited evaluation w/o contrast, follow up imaging in a few weeks recommended
leukocytosis improving, afebrile
#Acute kidney injury
Secondary to sepsis versus dehydration
Resolved
#Non-anion gap metabolic acidosis
Lactic acid 0.8
acidosis resolved, bicarb supplementation appreciated
#Severe constipation
reportedly has not had a bowel movement for 2 weeks
cont aggressive bowel regimen
constipation appears resolved at this time
#HTN
home antihypertensives held on admission d/t relative low soft pressures
Blood pressure increasing
home amlodipine resumed with holding parameters
#Hypokalemia
repleted
resolved
#Hyponatremia
cont Fluid restriction
Na stable 130s
# Anemia of chronic disease
Iron studies reviewed, patient has anemia of chronic disease
Trend hemoglobin
#Elevated LFTs
Monitor
#Depression
Continue bupropion and sertraline
#Right sided back pain vs Flank Tenderness
#Chronic back pain dependent on opioids
Continue Suboxone, cont Tylenol lidocaine patch
prn Ibuprofen
check urinalysis reflex culture
DVT prophylaxis�subcu Lovenox
GI ppx Protonix
Full code
PT appreciated SNF rehab
Total time spent to see the patient on the floor, examine the patient, review data and lab results, discuss treatment plan with patient, nursing staff around 53 minutes.
Physical Exam
General: Appears chronically ill, no acute distress
HEENT: Normocephalic, Atraumatic, EOMI, MMM
Respiratory: Left basilar crackles
Cardiac: Normal S1/S2, Regular Rate and Rhythm
abd: Soft, Nontender, distended abdomen, Normal Bowel Sounds, right flank tenderness
Extremities: No Clubbing, Cyanosis, or Edema
Neuro: Nonfocal/Grossly Intact
Psych: Calm, Cooperative
Anticipated Discharge: 24 - 48 hours
Subjective/Interval History
-
Date of Service: June 12, 2023
Seen and examined at bedside in no acute distress resting comfortably in bed. Reports improvement in back pain. Right flank tenderness present.
Objective Data
-
Labs:
Laboratory Results
06/12/23
07:36
WBC 12.5 H
Hgb 7.7 L
Hct 23.7 L
Plt Count 632 H
Sodium Pending
Potassium Pending
Chloride Pending
Carbon Dioxide Pending
BUN Pending
Creatinine Pending
Glucose Pending
Calcium Pending
Vital Signs:
Vital Signs
Temp Pulse Resp BP Pulse Ox
98.6 F 63 18 163/59 96
06/12/23 07:30 06/12/23 07:30 06/12/23 07:30 06/12/23 07:30 06/12/23 07:30
I&O
06/11/23 06/12/23 06/13/23
06:59 06:59 06:59
Intake Total 1640 / 1640 1760 / 1760
Balance 1640 / 1640 1760 / 1760
[2023-06-12] MEDS: WELLBUTRIN XL (24 hour extended release) 450 MG PO (09:00)
[2023-06-12] MEDS: ZITHROMAX 500 MG PO (09:00)
[2023-06-12] MEDS: PROTONIX 40 MG PO (09:00)
[2023-06-12] MEDS: ZOLOFT 100 MG PO (09:00)
[2023-06-12] MEDS: LIDOCAINE 4% PATCH 2 PATCH TOPICAL (09:01)
[2023-06-12] MEDS: MIRALAX PO (09:02)
[2023-06-12] MEDS: MUCINEX 600 MG PO ×2 (09:03→21:31)
[2023-06-12] MEDS: TYLENOL 1000 MG PO ×3 (09:03→21:32)
[2023-06-12] MEDS: SUBUTEX 8 MG SL ×2 (09:03→21:31)
[2023-06-12] MEDS: SENOKOT-S 2 TABLET PO ×2 (09:03→21:32)
[2023-06-12 09:06] LABS: Blood Urea Nitrogen 25 mg/dl (7-17); Calcium 8.9 mg/dl (8.4-10.2); Carbon Dioxide 23 mmol/L (22-30); Chloride 103 mmol/L (98-107); Estimated Creatinine Clearance 49 ml/min; Glucose 125 mg/dl (70-99); Magnesium 2.1 mg/dl (1.6-2.3); Potassium 4.2 mmol/L (3.5-5.1); Sodium 135 mmol/L (135-145); eGFR > 60.00
--- NOTE | 2023-06-12 09:30 | PN.CDI ---
CDI
- -
CDI:
Physician Documentation Request
Admit Date: 06/08/23 19:50
Dear Doctor Mary,
Please review the following and provide your response in the progress notes.
Clinical Indicators:
Documentation in the record on 06/10 Progress Note includes the diagnosis of sepsis.
- 06/10 PN 'Community-acquired pneumonia'
- 'Acute kidney injury...Secondary to sepsis versus dehydration'
- 06/10 WBC 28.6 - All VS within normal limits on 06/07 admission
- Lactic acid 0.8
- Nasal, blood, urine Cultures negative
Please clarify based on the above information and the recognized standard SIRS criteria, if sepsis is still an accurate diagnosis, and reflective of the patient�s condition, to ensure quality of the medical record.
Sepsis is/was present and is a clinical diagnosis based on (please include this additional support in the medical record)
After careful study sepsis has been ruled out
Other
Recognized standard criteria for this condition and other associated definitions:
�Bacteremia
-Abnormal laboratory test does not indicate a clinically ill patient
�Sepsis
-Systemic manifestations of infection, with 2 or more SIRS criteria which include:
-Fever > 100.4��F or hypothermia < 96.8��F
-Leukocytosis WBC > 12,000 or leukopenia, WBC < 4,000, or > 10% bands
-Tachycardia- > 90 beats/minute
-Tachypnea- RR > 20 breaths/minute or PaCO2 < 32mmHg
Source: Merck Manual 2013
-Documentation should include the known or suspected organism, and the underlying infection, such as UTI or pneumonia
�Severe Sepsis
-Sepsis with associated acute organ dysfunction, such as renal or respiratory failure
-Documentation should indicate the association between the sepsis and the organ dysfunction
�Septic Shock
-Severe sepsis with associated with circulatory failure, evidenced by hypotension and hypoperfusion
Use of terms such as suspected, likely, concern for, or probable (associated with a specific diagnosis that is being evaluated, monitored, or treated as if it exists) are acceptable and can be coded in the inpatient setting, when documented at the
time of discharge.
Thank you,
Maggi Murcia RN
CDI Specialist
Please use your independent medical judgment in providing your response.
[2023-06-12] MEDS: NORVASC 5 MG PO ×2 (11:03→21:32)
--- NOTE | 2023-06-12 12:15 | W.PN.ID1 ---
Date of Service
Date of Service: June 12, 2023
Today's Communication
Continue antibiotics. See below�
Assessment / Plan
Right middle lobe pneumonia (CAP)
Leukocytosis
JERMAN; improved
Mild transaminitis
HTN
Dyslipidemia
Depression
GERD
Chronic low back pain
Ambulatory dysfunction
Hearing impairment
Recommendations:
Continue with ceftriaxone (d#5)
Complete Azithromycin today (d#5).
May be able to transition ceftriaxone to cefdinir in the next 24 hours if white count continues to improve.
Monitor white count and temperature curve.
����������������������������������������������������������
Chief Complaint
-: Pneumonia
Subjective / Review of Systems
Review of Systems: No Fever, Cough and Sputum Production (Small amount)
Vital Signs / Physical Exam
Vital Signs
Vital Signs
Temp Pulse Resp BP Pulse Ox
98.6 F 63 18 163/59 96
06/12/23 07:30 06/12/23 07:30 06/12/23 07:30 06/12/23 07:30 06/12/23 08:45
Physical Exam
Constitutional: No Acute Distress, Comfortable, Chronically Ill and Non-toxic
Eyes: No Conjunctival Hemorrhage and Sclera Anicteric
Cardiovascular: S1/S2; Negative S3/S4
Pulmonary: Coarse and Non Labored; Negative Wheezes
Gastrointestinal: Soft and Non Distended
Neurological: Awake and Alert
Psychological: Calm
Objective Data
Lab Data
Lab Results
06/12/23 07:36
06/12/23 07:36
Estimated Creat Clear 49 ml/min 06/12/23 07:36
Lactic Acid 0.8 mmol/L (0.7-2.0) 06/08/23 19:55
Total Bilirubin 0.4 mg/dl (0.2-1.3) 06/10/23 07:15
AST 202 U/L (14-36) H 06/10/23 07:15
ALT 139 U/L (0-35) H 06/10/23 07:15
Alkaline Phosphatase 266 U/L (38-126) H 06/10/23 07:15
Most recent labs reviewed.
Micro Results:
06/08/23 19:55 Blood Culture - Preliminary
Blood/Venous No Growth in 72 hours- Final report to follow
06/08/23 19:55 Blood Culture - Preliminary
Blood/Venous No Growth in 72 hours- Final report to follow
06/09/23 11:50 Streptococcus pneumoniae Antigen (M - Final
Urine Negative for Streptococcus pneumoniae antigen.
A negative result does not exclude infection with
Streptococcus pneumoniae. Clinical correlation is
recommended.
06/08/23 19:55 Legionella Urinary Antigen - Final
Urine Negative for Legionella pneumophila Serogroup 1 antigen.
A negative result does not rule out the possiblity of
Legionella infection due to other serogroups or species of
Legionella. Clinical correlation is recommended.
06/08/23 15:51 Influenza Types A & B (FRANK) - Final
Nasal Swab Negative for Influenza A & B, NAAT
Negative results must be combined with clinical observations
and patient history.
Nucleic Acid Amplification test (NAAT)performed on the
[employer] platform.
Imaging:
06/08/2023 CXR (2 view): Right middle lobe consolidative airspace opacity compatible with pneumonia. No pleural effusion or pneumothorax.
06/08/2023 CT abdomen/pelvis: Liver, gallbladder, bile ducts and spleen are unremarkable. Bilateral adrenal glands are unremarkable. Pancreas is severely atrophic. Partially imaged dense consolidation in the right middle lobe remains concerning
for pneumonia. Please see full dictation for additional detail.
--- NOTE | 2023-06-12 12:39 | CM ---
Addendum entered by Leana Whittaker 06/12/23 14:21:
TC to [facility] [phone] to request skilled rehab.
Per traveling sales representative, clinical information needs to be faxed to [phone].
Original Note:
Patient accepted by [facility].
NPI # [id number]
Dr Jacobo Celestin NPI# [id number]
Will initiate [facility] Authorization.
Plan: skilled rehab when stable.
[2023-06-12 14:42] VITALS: BP 149/59; PULSE 66; O2SAT 97
[2023-06-12] MEDS: DUPHALAC/CHRONULAC 20 GRAMS PO (17:06)
[2023-06-12] MEDS: FLUSH (NSS) IV (17:06)
[2023-06-12] MEDS: LOVENOX 40 MG SC (17:07)
[2023-06-12] MEDS: STERILE WATER FOR INJECTION 10 ML IV (17:08)
[2023-06-12] MEDS: ROCEPHIN 1000 MG IV (17:08)
[2023-06-12 21:27] VITALS: BP 150/66
[2023-06-12] MEDS: MIRALAX 17 GRAMS PO (21:31)
[2023-06-12 23:17] VITALS: BP 129/53
[2023-06-13 06:08] LABS: Urine Albumin Negative (Neg - Trace); Urine Bilirubin Negative (Negative); Urine Character Clear (Clear); Urine Color Yellow; Urine Glucose Negative (Negative); Urine Ketone Negative (Negative); Urine Leukocyte Negative (Negative); Urine Nitrite Negative (Negative); Urine Occult Blood Negative (Negative); Urine Specific Gravity 1.015 (<1.030); Urine Urobilinogen Negative (Neg - 1+)
--- NOTE | 2023-06-13 07:08 | W.PN.HOSP.TC ---
Addendum entered and electronically signed by Сергей Hernandez MD 06/14/23 07:15:
possible sepsis present on admission with white count elevation and tachypnea
Original Note:
Today's Communication/Plan
-
cont abx as per ID
PT/OT
pain blood pressure control
trend wbc
discharge planning SNF rehab
Assessment / Plan
Assessment / Plan
HPI: 67F poor historian Former smoker , from home [facility] from home with productive cough, colored yellow sputum, myalgia for 1 week. Denied fever and chills
Worsening chr LBP especially on R Lower back. No focal weakness
Normally use walker but last few days just lying in bed
Assessment/plan:
#Community-acquired pneumonia
stable respiratory status on room air
Appreciate ID input, continue Rocephin D6, 5 days azithromycin completed
COVID-negative, influenza negative, urine Legionella/strep antigen negative
CT chest appreciated PNA, limited evaluation w/o contrast, follow up imaging in a few weeks recommended
leukocytosis improving, afebrile
#Acute kidney injury
Secondary to sepsis versus dehydration
Resolved
#Non-anion gap metabolic acidosis
Lactic acid 0.8
acidosis resolved, bicarb supplementation appreciated
#Severe constipation
reportedly has not had a bowel movement for 2 weeks
cont aggressive bowel regimen
constipation appears resolved at this time
#HTN
home antihypertensives held on admission d/t relative low soft pressures
Blood pressure increasing
home amlodipine resumed with holding parameters
#Hypokalemia
repleted
resolved
#Hyponatremia
cont Fluid restriction
Na stable 130s
# Anemia of chronic disease
Iron studies reviewed, patient has anemia of chronic disease
Trend hemoglobin
#Elevated LFTs
Monitor
#Depression
Continue bupropion and sertraline
#Right sided back pain vs Flank Tenderness
#Chronic back pain dependent on opioids
Continue Suboxone, cont Tylenol lidocaine patch
prn Ibuprofen
urinalysis neg for UTI
DVT prophylaxis�subcu Lovenox
GI ppx Protonix
Full code
PT appreciated SNF rehab
Total time spent to see the patient on the floor, examine the patient, review data and lab results, discuss treatment plan with patient, nursing staff around 53 minutes.
Physical Exam
General: Appears chronically ill, no acute distress
HEENT: Normocephalic, Atraumatic, EOMI, MMM
Respiratory: Left basilar crackles
Cardiac: Normal S1/S2, Regular Rate and Rhythm
abd: Soft, Nontender, distended abdomen, Normal Bowel Sounds, right flank tenderness
Extremities: No Clubbing, Cyanosis, or Edema
Neuro: Nonfocal/Grossly Intact
Psych: Calm, Cooperative
Anticipated Discharge: 24 - 48 hours
Subjective/Interval History
-
Date of Service: June 13, 2023
No acute distress. Appears comfortable. Reports cough, back pain though seems improved from yesterday, less tender
Objective Data
-
Labs:
Laboratory Results
06/13/23
06:55
WBC Pending
Hgb Pending
Hct Pending
Plt Count Pending
Sodium Pending
Potassium Pending
Chloride Pending
Carbon Dioxide Pending
BUN Pending
Creatinine Pending
Glucose Pending
Calcium Pending
Total Bilirubin Pending
AST Pending
ALT Pending
Alkaline Phosphatase Pending
Vital Signs:
Vital Signs
Temp Pulse Resp BP Pulse Ox
98.8 F 65 18 129/53 94
06/12/23 23:17 06/12/23 23:17 06/12/23 23:17 06/12/23 23:17 06/12/23 23:17
I&O
06/12/23 06/13/23 06/14/23
06:59 06:59 06:59
Intake Total 1760 / 1760 1440 / 1440
Output Total 300 / 300
Balance 1760 / 1760 1140 / 1140
[2023-06-13 07:30] VITALS: BP 146/52
[2023-06-13 07:32] LABS: Hematocrit 25.9 % (37.0-47.0); Hemoglobin 8.1 g/dL (12.0-16.0); Mean Corp Hgb Conc. 31.3 g/dL (33.0-37.0); Mean Corpuscular Hgb 28.9 pg (27.0-31.0); Mean Corpuscular Volume 92.5 fL (81.0-99.0); Mean Platelet Volume 9.9 fL (7.4-10.4); Platelet Count 662 10^3/uL (130-400); Red Cell Dist. Width 15.8 % (11.5-14.5); White Blood Cell Count 13.7 10^3/uL (4.8-10.8)
[2023-06-13 07:53] LABS: ALT (SGPT) 53 U/L (0-35); AST (SGOT) 38 U/L (14-36); Albumin 2.6 g/dl (3.5-5.0); Alkaline Phosphatase 178 U/L (38-126); Blood Urea Nitrogen 22 mg/dl (7-17); Calcium 8.9 mg/dl (8.4-10.2); Carbon Dioxide 25 mmol/L (22-30); Chloride 107 mmol/L (98-107); Direct Bilirubin 0.2 mg/dl (0.0-0.4); Estimated Creatinine Clearance 49 ml/min; Glucose 103 mg/dl (70-99); Magnesium 2.1 mg/dl (1.6-2.3); Phosphorus 4.5 mg/dl (2.5-4.5); Potassium 5.1 mmol/L (3.5-5.1); Sodium 137 mmol/L (135-145); Total Bilirubin 0.2 mg/dl (0.2-1.3); Total Protein 5.7 g/dl (6.3-8.2); eGFR > 60.00
[2023-06-13] MEDS: LIDOCAINE 4% PATCH 2 PATCH TOPICAL (08:00)
[2023-06-13] MEDS: MIRALAX 17 GRAMS PO ×2 (08:00→20:02)
[2023-06-13] MEDS: TYLENOL 1000 MG PO ×3 (08:00→21:12)
[2023-06-13] MEDS: NORVASC 5 MG PO ×2 (08:00→20:01)
[2023-06-13] MEDS: SENOKOT-S 2 TABLET PO ×2 (08:00→20:01)
[2023-06-13] MEDS: SUBUTEX 8 MG SL ×2 (08:00→20:01)
[2023-06-13] MEDS: PROTONIX 40 MG PO (08:00)
[2023-06-13] MEDS: ZOLOFT 100 MG PO (08:00)
[2023-06-13] MEDS: WELLBUTRIN XL (24 hour extended release) 450 MG PO (08:00)
[2023-06-13] MEDS: MUCINEX 600 MG PO (08:00)
--- NOTE | 2023-06-13 08:05 | PN.CDI ---
CDI
- -
CDI:
Physician Documentation Request
Admit Date: 06/08/23 19:50
Dear Doctor Jojo,
Please review the following and provide your response in the progress notes.
Clinical Indicators:
The diagnosis of avascular necrosis was included in the signed 06/09 Abd/Pelvis CT.
- 06/09 Abd/Pelvis CT 'Findings in the left femoral head compatible with avascular necrosis, a new finding since examination of July 14, 2022'
- 06/11 PN 'Inappropriate prednisone use...not prescribed by physician'
- 'Admits to as much is taking 40 mg sometimes daily sometimes'
Please indicate in your progress notes if you are in agreement that the above diagnosis is valid for this patient:
____ - Avascular necrosis is a valid diagnosis (Please include it in your progress notes)
____ - Avascular necrosis is not a valid diagnosis for this patient
____ - Avascular necrosis is not yet confirmed but remains a suspected condition
____ - Other
Use of terms such as suspected, likely, concern for, or probable are acceptable for a diagnosis that is being evaluated, monitored or treated as if it exists and can be coded in the inpatient setting, when documented at the time of discharge.
Thank you,
Maggi Murcia RN
CDI Specialist
Please use your independent medical judgment in providing your response.
--- NOTE | 2023-06-13 10:42 | CM ---
Addendum entered by Leana Whittaker 06/13/23 15:44:
Patient seen bedside.
Patient very emotional re her family especially her son.
TC from [facility]
patient has beeen approved for skilled rehab at [facility]
Authorization # [id number]
Approved 12 days
Start of care 06/13/23, NRD 06/24/23
Updates to fax# [phone]
Original Note:
TC from [facility]
requested updated PT notes with goals, prior living situation, number of steps to enter residence.
Information all on PT note from 06/12/23.
Updated PT note faxed to [phone].
Plan: Skilled rehab when medically stable.
--- NOTE | 2023-06-13 11:58 | W.PN.ID1 ---
Date of Service
Date of Service: June 13, 2023
Today's Communication
Send sputum for culture.
Continue with ceftriaxone
Assessment / Plan
Right middle lobe pneumonia (CAP)
Leukocytosis
JERMAN; improved
Mild transaminitis
HTN
Dyslipidemia
Depression
GERD
Chronic low back pain
Ambulatory dysfunction
Hearing impairment
Recommendations:
Leukocytosis slightly increased today
Send sputum for culture.
Continue with ceftriaxone (d#6)
Completed 5d Azithromycin
May be able to transition ceftriaxone to cefdinir in the next 24 hours if white count continues to improve.
Monitor white count and temperature curve.
����������������������������������������������������������
Chief Complaint
-: Pneumonia
Subjective / Review of Systems
c/o mucous building up on her throat. coughed up thick yellow sputum.
Vital Signs / Physical Exam
Vital Signs
Vital Signs
Temp Pulse Resp BP Pulse Ox
99.1 F 63 18 146/52 96
06/13/23 07:30 06/13/23 07:30 06/13/23 07:30 06/13/23 07:30 06/13/23 07:30
Physical Exam
Constitutional: No Acute Distress
Pulmonary: Rales (right crackles)
Gastrointestinal: Soft and Non Tender
Extremities: Negative Edema
Neurological: AO x 3
Objective Data
Lab Data
Lab Results
06/13/23 06:55
06/13/23 06:55
Estimated Creat Clear 49 ml/min 06/13/23 06:55
Lactic Acid 0.8 mmol/L (0.7-2.0) 06/08/23 19:55
Total Bilirubin 0.2 mg/dl (0.2-1.3) 06/13/23 06:55
AST 38 U/L (14-36) H 06/13/23 06:55
ALT 53 U/L (0-35) H 06/13/23 06:55
Alkaline Phosphatase 178 U/L (38-126) H 06/13/23 06:55
Most recent labs reviewed.
Micro Results:
06/08/23 19:55 Blood Culture - Preliminary
Blood/Venous No Growth in 4 days- Final report to follow
06/08/23 19:55 Blood Culture - Preliminary
Blood/Venous No Growth in 4 days- Final report to follow
06/09/23 11:50 Streptococcus pneumoniae Antigen (M - Final
Urine Negative for Streptococcus pneumoniae antigen.
A negative result does not exclude infection with
Streptococcus pneumoniae. Clinical correlation is
recommended.
06/08/23 19:55 Legionella Urinary Antigen - Final
Urine Negative for Legionella pneumophila Serogroup 1 antigen.
A negative result does not rule out the possiblity of
Legionella infection due to other serogroups or species of
Legionella. Clinical correlation is recommended.
06/08/23 15:51 Influenza Types A & B (FRANK) - Final
Nasal Swab Negative for Influenza A & B, NAAT
Negative results must be combined with clinical observations
and patient history.
Nucleic Acid Amplification test (NAAT)performed on the
[employer] platform.
Imaging:
06/08/2023 CXR (2 view): Right middle lobe consolidative airspace opacity compatible with pneumonia. No pleural effusion or pneumothorax.
06/08/2023 CT abdomen/pelvis: Liver, gallbladder, bile ducts and spleen are unremarkable. Bilateral adrenal glands are unremarkable. Pancreas is severely atrophic. Partially imaged dense consolidation in the right middle lobe remains concerning
for pneumonia. Please see full dictation for additional detail.
[2023-06-13] MEDS: FLUSH (NSS) IV (17:00)
[2023-06-13] MEDS: DUPHALAC/CHRONULAC 20 GRAMS PO (17:57)
[2023-06-13] MEDS: LOVENOX 40 MG SC (17:57)
[2023-06-13] MEDS: STERILE WATER FOR INJECTION 10 ML IV (18:18)
[2023-06-13] MEDS: ROCEPHIN 1000 MG IV (18:19)
[2023-06-13 20:00] VITALS: BP 152/57
[2023-06-13] MEDS: MUCINEX 1200 MG PO (20:02)
[2023-06-13] MEDS: REFRESH EYE DROPS (PF) 1 DROPS OPHTH (21:12)
[2023-06-13 23:00] VITALS: BP 158/65
--- NOTE | 2023-06-14 03:27 | PTCARENOTE ---
At 1900, patient reported blurry vision in right eye. Pupils were round and reactive. Strengths are equal. Patient is AAO x3. Carmen CHILEL notified, eye drop orders placed. Patient reported blurred right eye vision improved with drops.
--- NOTE | 2023-06-14 07:08 | W.PN.HOSP.TC ---
Today's Communication/Plan
-
cont abx as per ID
tessalon perle prn
resumed losartan reduced dose
cont blood pressure control
discharge planning SNF rehab tomorrow if remains stable/continues to improve
Assessment / Plan
Assessment / Plan
HPI: 67F poor historian Former smoker , from home [facility] from home with productive cough, colored yellow sputum, myalgia for 1 week. Denied fever and chills
Worsening chr LBP especially on R Lower back. No focal weakness
Normally use walker but last few days just lying in bed
Assessment/plan:
#Community-acquired pneumonia
possible sepsis present on admission with white count elevation and tachypnea
stable respiratory status on room air
COVID-negative, influenza negative, urine Legionella/strep antigen negative
CT chest appreciated PNA, limited evaluation w/o contrast, follow up imaging in a few weeks recommended
leukocytosis improving, afebrile
ID eval appreciated, 5 days azithromycin completed, Ceftriaxone converted to cefdinir to continue through 06/17
#Acute kidney injury
Secondary to sepsis versus dehydration
Resolved
#Non-anion gap metabolic acidosis
Lactic acid 0.8
acidosis resolved, bicarb supplementation appreciated
#Severe constipation
reportedly has not had a bowel movement for 2 weeks
cont aggressive bowel regimen
constipation appears resolved at this time
#HTN
home antihypertensives held on admission d/t relative low soft pressures
Blood pressure increasing
home amlodipine and losartan resumed with holding parameters/reduced dose
monitor and titrate antihypertensive regimen as necessary
#Hypokalemia
repleted
resolved
#Hyponatremia
cont Fluid restriction
Na stable 130s
# Anemia of chronic disease
Iron studies reviewed, patient has anemia of chronic disease
Trend hemoglobin
#Elevated LFTs
Monitor
#Depression
Continue bupropion and sertraline
#Right sided back pain vs Flank Tenderness
#Chronic back pain dependent on opioids
Continue Suboxone, cont Tylenol lidocaine patch
prn Ibuprofen
urinalysis neg for UTI
DVT prophylaxis�subcu Lovenox
GI ppx Protonix
Full code
PT appreciated SNF rehab
Total time spent to see the patient on the floor, examine the patient, review data and lab results, discuss treatment plan with patient, nursing staff around 53 minutes.
Physical Exam
General: Appears chronically ill, no acute distress
HEENT: Normocephalic, Atraumatic, EOMI, MMM
Respiratory: Left basilar crackles
Cardiac: Normal S1/S2, Regular Rate and Rhythm
abd: Soft, Nontender, distended abdomen, Normal Bowel Sounds, right flank tenderness
Extremities: No Clubbing, Cyanosis, or Edema
Neuro: Nonfocal/Grossly Intact
Psych: Calm, Cooperative
Anticipated Discharge: Within 24 hours
Subjective/Interval History
-
Date of Service: June 14, 2023
Seen and examined at bedside in no acute distress resting comfortably in bed. Reports overall improvement in symptoms. Continues to report cough but otherwise reports feeling well.
Objective Data
-
Labs:
Laboratory Results
06/14/23
06:00
WBC Pending
Hgb Pending
Hct Pending
Plt Count Pending
Sodium Pending
Potassium Pending
Chloride Pending
Carbon Dioxide Pending
BUN Pending
Creatinine Pending
Glucose Pending
Calcium Pending
Vital Signs:
Vital Signs
Temp Pulse Resp BP Pulse Ox
98.6 F 71 18 158/65 95
06/13/23 23:00 06/13/23 23:00 06/13/23 23:00 06/13/23 23:00 06/13/23 23:00
I&O
06/13/23 06/14/23 06/15/23
06:59 06:59 06:59
Intake Total 1440 / 1440 1500 / 1500
Output Total 300 / 300
Balance 1140 / 1140 1500 / 1500
[2023-06-14 07:30] VITALS: BP 171/81
[2023-06-14] MEDS: MUCINEX 1200 MG PO ×2 (07:32→19:48)
[2023-06-14] MEDS: TYLENOL 1000 MG PO ×3 (07:33→22:41)
[2023-06-14] MEDS: NORVASC 5 MG PO ×2 (07:33→19:58)
[2023-06-14] MEDS: PROTONIX 40 MG PO (07:33)
[2023-06-14] MEDS: ZOLOFT 100 MG PO (07:33)
[2023-06-14] MEDS: MIRALAX 17 GRAMS PO ×2 (07:33→19:48)
[2023-06-14] MEDS: LIDOCAINE 4% PATCH 2 PATCH TOPICAL (07:34)
[2023-06-14] MEDS: SUBUTEX 8 MG SL ×2 (07:34→19:49)
[2023-06-14] MEDS: SENOKOT-S 2 TABLET PO ×2 (07:34→19:49)
[2023-06-14 08:35] LABS: Hematocrit 27.4 % (37.0-47.0); Hemoglobin 8.6 g/dL (12.0-16.0); Mean Corp Hgb Conc. 31.4 g/dL (33.0-37.0); Mean Corpuscular Hgb 28.7 pg (27.0-31.0); Mean Corpuscular Volume 91.3 fL (81.0-99.0); Mean Platelet Volume 9.8 fL (7.4-10.4); Platelet Count 677 10^3/uL (130-400); Red Cell Dist. Width 15.7 % (11.5-14.5); White Blood Cell Count 11.8 10^3/uL (4.8-10.8)
[2023-06-14 09:00] LABS: Blood Urea Nitrogen 17 mg/dl (7-17); Calcium 9.2 mg/dl (8.4-10.2); Carbon Dioxide 27 mmol/L (22-30); Chloride 100 mmol/L (98-107); Estimated Creatinine Clearance 49 ml/min; Glucose 118 mg/dl (70-99); Magnesium 2.1 mg/dl (1.6-2.3); Phosphorus 3.8 mg/dl (2.5-4.5); Sodium 136 mmol/L (135-145); eGFR > 60.00
[2023-06-14 09:11] LABS: Potassium 4.9 mmol/L (3.5-5.1)
[2023-06-14] MEDS: WELLBUTRIN XL (24 hour extended release) 450 MG PO (09:36)
[2023-06-14 11:18] VITALS: BP 166/67; PULSE 69; O2SAT 98
--- NOTE | 2023-06-14 12:39 | W.PN.ID1 ---
Date of Service
Date of Service: June 14, 2023
Today's Communication
Transition ceftriaxone (d6) to cefdinir 300mg po bid through 06/18/23.
Assessment / Plan
Right middle lobe pneumonia (CAP)
Leukocytosis improving
JERMAN; improved
Mild transaminitis
HTN
Dyslipidemia
Depression
GERD
Chronic low back pain
Ambulatory dysfunction
Hearing impairment
Recommendations:
Leukocytosis improving
Completed 5d Azithromycin
Transition ceftriaxone (d6) to cefdinir 300mg po bid through 06/18/23.
Monitor white count and temperature curve.
����������������������������������������������������������
Chief Complaint
-: Pneumonia
Subjective / Review of Systems
Feeling better. Right thorax pain not as bad. Still with mucous on throat.
Vital Signs / Physical Exam
Vital Signs
Vital Signs
Temp Pulse Resp BP Pulse Ox
98.2 F 61 18 171/81 98
06/14/23 07:30 06/14/23 07:30 06/14/23 07:30 06/14/23 07:30 06/14/23 09:00
Physical Exam
Constitutional: No Acute Distress
Cardiovascular: Regular Rate and S1/S2
Pulmonary: Other (Right lung crackles)
Gastrointestinal: Soft, Non Tender, Non Distended and Normal Bowel Sounds
Neurological: AO x 3
Objective Data
Lab Data
Lab Results
06/14/23 07:43
06/14/23 07:43
Estimated Creat Clear 49 ml/min 06/14/23 07:43
Lactic Acid 0.8 mmol/L (0.7-2.0) 06/08/23 19:55
Total Bilirubin 0.2 mg/dl (0.2-1.3) 06/13/23 06:55
AST 38 U/L (14-36) H 06/13/23 06:55
ALT 53 U/L (0-35) H 06/13/23 06:55
Alkaline Phosphatase 178 U/L (38-126) H 06/13/23 06:55
Most recent labs reviewed.
Micro Results:
06/08/23 19:55 Blood Culture - Final
Blood/Venous No Growth - Final Report
06/08/23 19:55 Blood Culture - Final
Blood/Venous No Growth - Final Report
06/09/23 11:50 Streptococcus pneumoniae Antigen (M - Final
Urine Negative for Streptococcus pneumoniae antigen.
A negative result does not exclude infection with
Streptococcus pneumoniae. Clinical correlation is
recommended.
06/08/23 19:55 Legionella Urinary Antigen - Final
Urine Negative for Legionella pneumophila Serogroup 1 antigen.
A negative result does not rule out the possiblity of
Legionella infection due to other serogroups or species of
Legionella. Clinical correlation is recommended.
06/08/23 15:51 Influenza Types A & B (FRANK) - Final
Nasal Swab Negative for Influenza A & B, NAAT
Negative results must be combined with clinical observations
and patient history.
Nucleic Acid Amplification test (NAAT)performed on the
[employer] platform.
Imaging:
06/08/2023 CXR (2 view): Right middle lobe consolidative airspace opacity compatible with pneumonia. No pleural effusion or pneumothorax.
06/08/2023 CT abdomen/pelvis: Liver, gallbladder, bile ducts and spleen are unremarkable. Bilateral adrenal glands are unremarkable. Pancreas is severely atrophic. Partially imaged dense consolidation in the right middle lobe remains concerning
for pneumonia. Please see full dictation for additional detail.
[2023-06-14] MEDS: COZAAR 50 MG PO (12:55)
--- NOTE | 2023-06-14 13:33 | CM ---
Addendum entered by Leana Whittaker 06/14/23 16:18:
[facility] Liaison- call Ferdinand [phone] (covering for Mariana)
Original Note:
patient has been approved for skilled rehab at [facility]
Authorization # [id number]
Approved 12 days
Start of care 06/13/23, NRD 06/24/23
Updates to fax# [phone]
IMM completed.
Above info given to Mariana/liakevin for [facility]. Mariana aware of possible transfer tomorrow.
Plan: hopefully transfer to [facility] tomorrow if medically stable.
patient will have daughter transport.
[2023-06-14 15:00] VITALS: BP 162/62
[2023-06-14] MEDS: DUPHALAC/CHRONULAC 20 GRAMS PO (17:01)
[2023-06-14] MEDS: LOVENOX 40 MG SC (17:01)
[2023-06-14] MEDS: OMNICEF 300 MG PO (17:01)
[2023-06-14 23:29] VITALS: BP 138/57
[2023-06-15] MEDS: OMNICEF 300 MG PO ×2 (06:05→15:44)
[2023-06-15 07:00] VITALS: BP 116/70
[2023-06-15 07:07] LABS: Hematocrit 26.4 % (37.0-47.0); Hemoglobin 8.4 g/dL (12.0-16.0); Mean Corp Hgb Conc. 31.8 g/dL (33.0-37.0); Mean Corpuscular Hgb 29.6 pg (27.0-31.0); Mean Platelet Volume 9.8 fL (7.4-10.4); Platelet Count 611 10^3/uL (130-400); Red Blood Cell Count 2.84 10^6/uL (4.20-5.40); Red Cell Dist. Width 15.9 % (11.5-14.5); White Blood Cell Count 10.6 10^3/uL (4.8-10.8)
--- NOTE | 2023-06-15 07:18 | W.PN.HOSP.TC ---
Today's Communication/Plan
-
discharge
Assessment / Plan
Assessment / Plan
HPI: 67F poor historian Former smoker , from home [facility] from home with productive cough, colored yellow sputum, myalgia for 1 week. Denied fever and chills
Worsening chr LBP especially on R Lower back. No focal weakness
Normally use walker but last few days just lying in bed
Assessment/plan:
#Community-acquired pneumonia
possible sepsis present on admission with white count elevation and tachypnea
stable respiratory status on room air
COVID-negative, influenza negative, urine Legionella/strep antigen negative
CT chest appreciated PNA, limited evaluation w/o contrast, follow up imaging in a few weeks recommended
leukocytosis improving, afebrile
ID eval appreciated, 5 days azithromycin completed, Ceftriaxone converted to cefdinir to continue through 06/17
#Acute kidney injury
Secondary to sepsis versus dehydration
Resolved
#Non-anion gap metabolic acidosis
Lactic acid 0.8
acidosis resolved, bicarb supplementation completed
#Severe constipation
reportedly has not had a bowel movement for 2 weeks
cont aggressive bowel regimen
constipation appears resolved at this time
#HTN
home antihypertensives held on admission d/t relative low soft pressures
Blood pressure increasing
home amlodipine and losartan resumed with holding parameters/reduced dose
monitor and titrate antihypertensive regimen as necessary
#Hypokalemia
repleted
resolved
#Hyponatremia
cont Fluid restriction
Na stable 130s
# Anemia of chronic disease
Iron studies reviewed, patient has anemia of chronic disease
hemoglobin stable trended up
#Elevated LFTs
Resolving
#Depression
Continue bupropion and sertraline
#Right sided back pain vs Flank Tenderness
#Chronic back pain dependent on opioids
Continue Suboxone, cont Tylenol lidocaine patch
prn Ibuprofen
urinalysis neg for UTI
DVT prophylaxis�subcu Lovenox
GI ppx Protonix
Full code
PT appreciated SNF rehab
Medically stable for discharge SNF rehab with outpatient follow up recommendations.
Total Time Preparing Discharge ___50____ minutes including examination of the patient, summary of the hospital stay, instructions for continuing care to all relevant caregivers; and preparation of discharge records, prescriptions, and referral
forms if necessary.
Physical Exam
General: Appears chronically ill, no acute distress
HEENT: Normocephalic, Atraumatic, EOMI, MMM
Respiratory: Left basilar crackles
Cardiac: Normal S1/S2, Regular Rate and Rhythm
abd: Soft, Nontender, distended abdomen, Normal Bowel Sounds, lower back tenderness
Extremities: No Clubbing, Cyanosis, or Edema
Neuro: Nonfocal/Grossly Intact
Psych: Calm, Cooperative
Anticipated Discharge: Today
Subjective/Interval History
-
Date of Service: June 15, 2023
No acute distress. Comfortable
Objective Data
-
Labs:
Laboratory Results
06/15/23
06:35
WBC 10.6
Hgb 8.4 L
Hct 26.4 L
Plt Count 611 H
Sodium Pending
Potassium Pending
Chloride Pending
Carbon Dioxide Pending
BUN Pending
Creatinine Pending
Glucose Pending
Calcium Pending
Vital Signs:
Vital Signs
Temp Pulse Resp BP Pulse Ox
98.3 F 63 18 138/57 96
06/14/23 23:29 06/14/23 23:29 06/14/23 23:29 06/14/23 23:29 06/14/23 23:29
I&O
06/14/23 06/15/23 06/16/23
06:59 06:59 06:59
Intake Total 1500 / 1500 1300 / 1300
Balance 1500 / 1500 1300 / 1300
[2023-06-15 07:32] LABS: Blood Urea Nitrogen 18 mg/dl (7-17); Calcium 9.1 mg/dl (8.4-10.2); Carbon Dioxide 26 mmol/L (22-30); Chloride 103 mmol/L (98-107); Estimated Creatinine Clearance 63 ml/min; Glucose 113 mg/dl (70-99); Magnesium 2.1 mg/dl (1.6-2.3); Phosphorus 4.2 mg/dl (2.5-4.5); Potassium 4.9 mmol/L (3.5-5.1); Sodium 135 mmol/L (135-145); eGFR > 60.00
[2023-06-15] MEDS: SENOKOT-S 2 TABLET PO (07:49)
[2023-06-15] MEDS: WELLBUTRIN XL (24 hour extended release) 450 MG PO (07:49)
[2023-06-15] MEDS: SUBUTEX 8 MG SL (07:50)
[2023-06-15] MEDS: LIDOCAINE 4% PATCH 2 PATCH TOPICAL (07:50)
[2023-06-15] MEDS: MUCINEX 1200 MG PO (07:50)
[2023-06-15] MEDS: MIRALAX 17 GRAMS PO (07:50)
[2023-06-15] MEDS: ZOLOFT 100 MG PO (07:50)
[2023-06-15] MEDS: TYLENOL 1000 MG PO ×2 (07:51→15:43)
[2023-06-15] MEDS: NORVASC 5 MG PO (07:51)
[2023-06-15] MEDS: COZAAR 50 MG PO (07:51)
[2023-06-15] MEDS: PROTONIX 40 MG PO (07:51)
[2023-06-15] MEDS: PHENERGAN 25 MG PO (11:31)
--- NOTE | 2023-06-15 11:52 | W.PN.ID1 ---
Date of Service
Date of Service: June 15, 2023
Today's Communication
Continue cefdinir 300mg po bid through 06/18/23.
Assessment / Plan
Right middle lobe pneumonia (CAP)
Leukocytosis resolved
JERMAN; improved
Mild transaminitis
HTN
Dyslipidemia
Depression
GERD
Chronic low back pain
Ambulatory dysfunction
Hearing impairment
Recommendations:
Leukocytosis improving
Completed 5d Azithromycin
s/p 7d ceftriaxone
Continue cefdinir 300mg po bid through 06/18/23.
����������������������������������������������������������
Chief Complaint
-: Pneumonia
Subjective / Review of Systems
Continues to feel better.
Vital Signs / Physical Exam
Vital Signs
Vital Signs
Temp Pulse Resp BP Pulse Ox
99.1 F 67 18 116/70 99
06/15/23 07:00 06/15/23 07:00 06/15/23 07:00 06/15/23 07:00 06/15/23 07:50
Physical Exam
Constitutional: No Acute Distress
Pulmonary: Rales (decreased crackles right)
Objective Data
Lab Data
Lab Results
06/15/23 06:35
06/15/23 06:35
Estimated Creat Clear 63 ml/min 06/15/23 06:35
Lactic Acid 0.8 mmol/L (0.7-2.0) 06/08/23 19:55
Total Bilirubin 0.2 mg/dl (0.2-1.3) 06/13/23 06:55
AST 38 U/L (14-36) H 06/13/23 06:55
ALT 53 U/L (0-35) H 06/13/23 06:55
Alkaline Phosphatase 178 U/L (38-126) H 06/13/23 06:55
Most recent labs reviewed.
Micro Results:
06/08/23 19:55 Blood Culture - Final
Blood/Venous No Growth - Final Report
06/08/23 19:55 Blood Culture - Final
Blood/Venous No Growth - Final Report
06/09/23 11:50 Streptococcus pneumoniae Antigen (M - Final
Urine Negative for Streptococcus pneumoniae antigen.
A negative result does not exclude infection with
Streptococcus pneumoniae. Clinical correlation is
recommended.
06/08/23 19:55 Legionella Urinary Antigen - Final
Urine Negative for Legionella pneumophila Serogroup 1 antigen.
A negative result does not rule out the possiblity of
Legionella infection due to other serogroups or species of
Legionella. Clinical correlation is recommended.
06/08/23 15:51 Influenza Types A & B (FRANK) - Final
Nasal Swab Negative for Influenza A & B, NAAT
Negative results must be combined with clinical observations
and patient history.
Nucleic Acid Amplification test (NAAT)performed on the
[employer] platform.
Imaging:
06/08/2023 CXR (2 view): Right middle lobe consolidative airspace opacity compatible with pneumonia. No pleural effusion or pneumothorax.
06/08/2023 CT abdomen/pelvis: Liver, gallbladder, bile ducts and spleen are unremarkable. Bilateral adrenal glands are unremarkable. Pancreas is severely atrophic. Partially imaged dense consolidation in the right middle lobe remains concerning
for pneumonia. Please see full dictation for additional detail.
[2023-06-15 15:00] VITALS: BP 151/66
--- NOTE | 2023-06-15 15:00 | CM ---
Addendum entered by Alexa Santillan 06/15/23 15:11:
IMM reviewed, signed, placed in chart.
Original Note:
CM spoke with [employer] from [facility], confirmed able to accept patient. CM spoke with patients daughter, Jessie, can leave work around 5:15 and get to hospital around 6:00 p.m. Per [facility], can accept patient until 8:00 p.m. Patients
daughter will provide transportation to facility, [employer] updated with time. CM will continue to follow for discharge planning needs.
Plan; [facility], daughter to provide transportation.
[employer] [facility]
Report: [phone]
--- NOTE | 2023-06-15 15:00 | W.DCSUMMARY ---
Discharge Summary
Discharge Data
Date of Admission: 06/08/23
Date of Discharge: 06/15/23
-
Pending Results: No
Hospital Course
67F poor historian Former smoker, from home [facility] with productive cough, colored yellow sputum, myalgia for 1 week. Denied fever and chills. Reported worsening chronic Lower back pain especially on R Lower back. No focal weakness. Normally use
walker but last few days patient reported being bed bound. Community-acquired pneumonia, possible sepsis present on admission with white count elevation and tachypnea, stable respiratory status on room air. COVID-negative, influenza negative,
urine Legionella/strep antigen negative. CT chest appreciated PNA, limited evaluation w/o contrast, follow up imaging in a few weeks recommended
ID evaluated during stay and patient completed 5 days azithromycin. Empiric Ceftriaxone was converted to cefdinir to continue through 06/17. Acute kidney injury
secondary to sepsis versus dehydration resolved during stay. Non-anion gap metabolic acidosis, Lactic acid 0.8, acidosis resolved with bicarb supplementation, since completed. Severe constipation, reportedly has not had a bowel movement for 2
weeks, resolved with aggressive bowel regimen. Home antihypertensives were held on admission d/t relative low soft pressures. With increasing Blood pressure, home amlodipine and losartan were resumed with holding parameters/reduced dose.
Medically stable, patient was discharged to SNF rehab with outpatient follow up recommendations.
Discharge Plan
-
Patient Disposition: Alf/SNF
Discharge Diagnosis/Procedures: Pneumonia, Acute Kidney Injury Resolved, Mild transaminitis resolving, Hypertension, Hyperlipidemia, Depression, GERD, chronic low back pain, Ambulatory Dysfunction, Constipation, Hypokalemia resolved, Anemia of
Chronic Disease, Chronic Back Pain
Condition: Fair
Diet: Low Cholesterol and 2 Gram Sodium
Activity: With assistance, As tolerated and With Walker
Driving Restrictions: Not until seen by your Dr
Bathing Restrictions: None
Blood Work: Please repeat CBC and CMP with primary care provider in 1 week of discharge.
Others Tests: Please repeat CT chest with primary care provider in 2 weeks of discharge follow up resolution pneumonia
Other Services: PT and OT
Activity Restrictions/Additional Instructions:
Please follow up with primary care provider in 1 week of discharge.
Cefdinir has been prescribed for pneumonia to continue through 06/17 then stop.
Home Losartan dose has been reduced to daily instead of twice a day due to low pressures.
Please take medications as prescribed/recommended and follow up with primary care provider and/or other healthcare provider involved in your care for refills and/or further adjustment to your medication regimen as necessary.
Instructions: Community-Acquired Pneumonia, Adult (DC)
Referrals:
Lavern Villalpando MD [Family Provider] - in one week
Prescriptions:
New
cefdinir 300 mg Capsule
300 mg PO Q12H 4 Days Qty: 8 0RF
Rx Instructions:
continue through 06/17 then stop
guaifenesin 600 mg Tablet Extended Release 12hr
1,200 mg PO Q12 7 Days Qty: 28 0RF
acetaminophen [Tylenol Extra Strength] 500 mg Tablet
1,000 mg PO TIDPRN PRN (Reason: moderate severe pain) Qty: 42 0RF
Continued
atorvastatin [Lipitor] 10 mg Tablet
10 mg PO QPM
sertraline 100 mg Tablet
100 mg PO DAILY
amlodipine [Norvasc] 5 mg Tablet
5 mg PO BID
buprenorphine-naloxone 8-2 mg Tablet, Sublingual
1 tab SUBLINGUAL BID
bupropion HCl [Wellbutrin XL] 150 mg Tablet Extended Release 24 Hr
450 mg PO DAILY
Relistor 150 mg Tablet
150 mg PO TID
Metocuramine
5 mg PO QID
Changed
losartan 50 mg Tablet
50 mg PO DAILY Qty: 0 0RF
Discharge Orders:
Discharge Patient (As Directed); Ordered 06/15/23
Ordered By: Сергей Hernandez
Discharge Date and Time
Discharge Date/Time: 06/15/23 18:07
Print Language: KAZAKH
[2023-06-15] MEDS: LOVENOX SC (15:43)
[2023-06-15] MEDS: DUPHALAC/CHRONULAC 20 GRAMS PO (15:44)
== END 2023-06-15 18:07 | DRG 871 ==
LOC: 4 WEST ACU 19:50
PROVIDERS: Emergency Medicine; Family Medicine; ADMITTING PHYSICIAN Internal Medicine; ATTENDING PHYSICIAN Internal Medicine; CONSULT PHYSICIAN Internal Medicine Infectious Disease; EMERGENCY PHYSICIAN Emergency Medicine; FAMILY PHYSICIAN Internal Medicine
DX: A41.9 Sepsis, unspecified organism (principal); J18.9 Pneumonia, unspecified organism; N17.9 Acute kidney failure, unspecified; E87.1 Hypo-osmolality and hyponatremia; E87.20 Acidosis, unspecified; K21.9 Gastro-esophageal reflux disease without esophagitis; I10 Essential (primary) hypertension; E87.6 Hypokalemia; D63.8 Anemia in other chronic diseases classified elsewhere; M54.9 Dorsalgia, unspecified; G89.29 Other chronic pain; F32.A Depression, unspecified; Z87.891 Personal history of nicotine dependence
CPT/HCPCS: 71046; 71250; 74177; 80048; 80053; 81003; 82248; 82533; 82607; 82728; 82746; 83036; 83540; 83550; 83605; 83735; 84100; 84443; 84466; 85025; 85027; 86803; 87040; 87449; 87502; 87811; 87899; 93005; 94640; 96365; 96375; 97116; 97163; 97530; 99285; J7030; Q9967